=== PATIENT | male | born 2000 | race Caucasian/White ===

== ENCOUNTER 2023-08-06 12:06 | Outpatient (AMB) | payer OTHER, SELFPAY ==
--- NOTE | 2023-08-06 12:27 | AM.OFFWIN_ITS ---
Intake Vital Signs 08/06/23 12:48 Height 5 ft 11 in Weight 265 lb 8 oz BMI 37.0 BP 130/78 Blood Pressure Location Lt brachial Position Sitting Pulse 82 Pulse Source Pulse Oximeter Temp 98.1 F Temp Source Oral Pulse Oximetry (%) 98 Oxygen Delivery Method Room Air Intake Visit Reasons: EP severe stomach pain [phone] Intake Note: pt is here for c.o severe stomach pain since this morning Patient Tobacco Use Status: Never used Tobacco Allergies No Known Allergies Allergy (Verified 08/06/23 12:49) Do you need a note to return to daycare/school/sports/work: Yes HPI HPI Comments History of Present Illness Details [facility] for right sided mid-abdominal pain since this morning. Pain started after patient woke up this morning. 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 He made himself throw up and states the pain improved Took pepto at home Had normal BM yesterday, today he reports half watery and half solid. Endorses bloating Denies fever, chest pain, shortness of breath, blood in urine/stool/emesis, syncope, weakness Endorses fatigue and feeling run down which he attributes to working outside in the cold Patient reports pain is intermittent, has improved since his arrival at the [facility]. [facility] Family History Father Substance use disorder Social History Housing: House Patient Tobacco Use Status: Never used Tobacco e-Cigarette/Vaping Use: Never Used Second Hand Smoke Exposure: Yes service: No Current occupational status: employed Current occupation: [employer] Current occupational exposures/hazards: Yes Cognitive needs: No Hearing needs: No Vision needs: No Review of Systems Const All systems reviewed & are unremarkable except as noted in HPI and below Physical Exam Vital Signs: Last Vital Signs Temp 98.1 F 08/06/23 12:48 Pulse 82 08/06/23 12:48 BP 130/78 08/06/23 12:48 Pulse Ox 98 08/06/23 12:48 Oxygen Delivery Method Room Air 08/06/23 12:48 BMI result Body Mass Index 37.0 General: awake, alert, oriented. Answers questions appropriately. Patient was sleeping with head resting on hands. Appears comfortable in no acute distress Skin: warm, dry, intact HEENT: Normocephalic. Hearing intact. oral mucosa moist Cardiac: External chest normal in appearance. Respiratory: No cough, audible wheezing or stridor. Abdomen: without gross distension. no guarding. minimally tender just right of umbilicus otherwise nontender to palpation. negative McBurney. BS active X 4 quads MS: No obvious swelling or deformities. Neurological: Oriented to person, place, time and situation. Thought process intact. No gait abnormalities appreciated. Psychiatric: Appropriate mood and affect. Good judgment and insight. Assessment & Plan Assessment & Plan (1) Abdominal pain: Code(s): R10.9 - Unspecified abdominal pain Plan Patient presented to the walk in with complaints of abdominal pain Pain had improved after arrival at the [facility]. Upon entering the room for evaluation the patient was resting comfortably with head on hands, reported he was sleeping . Abdomen minimally tender to palpation just right of umbilicus otherwise nontender. neg guarding. No acute concerns at this time. Simethicone 180mg po BID as needed Patient encouraged rest and clear liquid diet, advance as tolerated. Avoid dairy, spicy, fatty foods for today. Push fluids as tolerated Seek emergent treatment in ER for severe abd pain, intractable vomiting, blood in stool/emesis or any concerning symptoms. Follow up with pcp or at walk in as needed. Work note provided. Medications: New simethicone 180 mg PO BID PRN 20 caps 0RF abdominal distention Coding Level of Care Code Est Pt Level 4 (79735) Diagnoses Abdominal pain R10.9
[2023-08-06 12:48] VITALS: BP 130/78; PULSE 82; TEMP 36.7; O2SAT 98; BMI 37.0
== END 2023-08-06 14:40 | disposition home or self-care (01) ==
PROVIDERS: PCP Nurse Practitioner Family; Visit Provider Registered Nurse Emergency
DX: R10.9 Unspecified abdominal pain (principal)
CPT/HCPCS: 99213

== ENCOUNTER 2023-09-05 08:27 | Outpatient (AMB) | payer OTHER, SELFPAY ==
[2023-09-05 08:41] VITALS: BP 128/78; PULSE 78; TEMP 36.4; O2SAT 97; BMI 36.3
--- NOTE | 2023-09-05 08:41 | AM.OFFWIN_ITS ---
Intake Vital Signs 09/05/23 08:41 Height 5 ft 11 in Weight 260 lb BMI 36.3 BP 128/78 Blood Pressure Location Lt brachial Position Sitting Pulse 78 Pulse Source Pulse Oximeter Temp 97.5 F Temp Source Temporal Artery Scan Pulse Oximetry (%) 97 Oxygen Delivery Method Room Air Intake Visit Reasons: EP penis skin irritation Intake Note: pt is here today for penis skin irritation started 2 weeks ago Patient Tobacco Use Status: Never used Tobacco Allergies No Known Allergies Allergy (Verified 09/05/23 08:42) Do you need a note to return to daycare/school/sports/work: No HPI HPI Comments History of Present Illness Details Patient is a 23yo M who presents to office with penile irritation Ongoing for 1 week Never had before No itch or pain, 0/10 No drainage or injury No dysuria, frequency hematuria No abdominal pain He has not tried any lotions on areal warm; water and soap Pt denies concern about STD No new irritating contacts aside from the use of a sex toy he states at home. [facility] Family History Father Substance use disorder Social History Housing: House Patient Tobacco Use Status: Never used Tobacco e-Cigarette/Vaping Use: Never Used Second Hand Smoke Exposure: Yes service: No Current occupational status: employed Current occupation: [employer] Current occupational exposures/hazards: Yes Cognitive needs: No Hearing needs: No Vision needs: No Review of Systems Const Denies chills and Denies fever(s) Card Denies chest pain and Denies dyspnea Resp Denies cough and Denies dyspnea GI Denies abdominal pain Denies difficulty urinating, Reports genital lesions, Denies genital pain, Denies dysuria, Denies testicular pain, Denies urinary frequency, Denies urinary hesitancy, Denies urinary incontinence and Denies urinary urgency Musc Denies back pain Skin/Breast Reports erythema and Reports rash Physical Exam Vital Signs: Last Vital Signs Temp 97.5 F 09/05/23 08:41 Pulse 78 09/05/23 08:41 BP 128/78 09/05/23 08:41 Pulse Ox 97 09/05/23 08:41 Oxygen Delivery Method Room Air 09/05/23 08:41 BMI result Body Mass Index 36.3 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 Speaking full sentences. Skin: Warm dry throughout Respiratory: No respiratory distress Cardiac: RRR. MSK: Full ROM extremities. : Circumsized penis has 3 well demarcated slightly raised erythematous circular/oval lesions. 1 located on dorsal aspect of shaft approx 0.5cm x 0.5xm. Smaller circular lesion noted to dorsal aspect of head of penis. One larger lesion located to undersurface of penile shaft approx 1cm x 0.5cm. Non-tender. No penile discharge. Neurology: A/O. No aphasia or facial droop. Gait without abnormality Psych: Good mood and affect Assessment & Plan Assessment & Plan (1) Balanitis: Code(s): N48.1 - Balanitis Plan: + fungal balanitis on exam Discussed avoid trauma such as masterbation of sex toys x 1 week Use cream as prescribed Make sure sex toys at home are cleaned well prior to use Patient gave verbal understanding and had no additional questions or concerns at time of discharge All questions answered Medications: New clotrimazole 1% 1 appl topical BID 1 week 30 grams 0RF Coding Level of Care Code Est Pt Level 3 (18728) Diagnoses Balanitis N48.1
== END 2023-09-05 09:22 | disposition home or self-care (01) ==
PROVIDERS: PCP Nurse Practitioner Family; Visit Provider Physician Assistant
DX: N48.1 Balanitis (principal)
CPT/HCPCS: 99213

== ENCOUNTER 2023-09-07 08:01 | Outpatient (AMB) | payer OTHER, SELFPAY ==
[2023-09-07 08:10] VITALS: BP 122/72; PULSE 74; TEMP 36.6; O2SAT 98; BMI 36.3
--- NOTE | 2023-09-07 08:10 | MHC.OFFWIV ---
Intake Vital Signs 09/07/23 08:10 Height 5 ft 11 in Weight 260 lb BMI 36.3 BP 122/72 Blood Pressure Location Lt brachial Position Sitting Pulse 74 Pulse Source Pulse Oximeter Temp 97.8 F Temp Source Oral Pulse Oximetry (%) 98 Oxygen Delivery Method Room Air Intake Visit Reasons: EP Rash Intake Note: pt is here for c.o rash on penial, was in office 2 days ago and was given a cream and states it has gotten itchy and feels like rash has gotten worse. Patient Tobacco Use Status: Never used Tobacco Allergies No Known Allergies Allergy (Verified 09/07/23 08:11) Do you need a note to return to daycare/school/sports/work: Yes HPI HPI Comments History of Present Illness Details 23 male patient who presents to walk in clinic with c/o Penile rash that started 2 weeks ago. He was seen and evaluated at Walk in clinic 2 days ago and given Diagnosed with Penile Balanitis and given Clotrimazole cream. He presents today with c/o worsening symptoms. [facility] Family History Father Substance use disorder Social History Housing: House Patient Tobacco Use Status: Never used Tobacco e-Cigarette/Vaping Use: Never Used Second Hand Smoke Exposure: Yes service: No Current occupational status: employed Current occupation: [employer] Current occupational exposures/hazards: Yes Cognitive needs: No Hearing needs: No Vision needs: No Review of Systems Const All systems reviewed & are unremarkable except as noted in HPI and below Physical Exam Vital Signs: Last Vital Signs Temp 97.8 F 09/07/23 08:10 Pulse 74 09/07/23 08:10 BP 122/72 09/07/23 08:10 Pulse Ox 98 09/07/23 08:10 Oxygen Delivery Method Room Air 09/07/23 08:10 BMI result Body Mass Index 36.3 Const General: comfortable Orientation/consciousness: patient oriented x3 Male General Exam: Yes Genital lesions present (Small red lesions penile head, scrotum skin - signs of improvement) Penis: circumcised and Genital lesions present (Small red lesions penile head, scrotum skin - signs of improvement) Meatus: no meatla discharge Neuro General: patient oriented x3 Psych Speech and movement: Clear speech present Affect: Anxious affect present Attitude: cooperative Assessment & Plan Assessment & Plan (1) Balanitis: Code(s): N48.1 - Balanitis Plan: - Continue with the cream prescribed - Assured Pt that rash is getting better and cream working - Advised to give medicine sometime to work (2-4 weeks). - No more sex toys for few weeks - Clean Toys with warm and soap water. Coding Level of Care Code Est Pt Level 3 (50149) Diagnoses Balanitis N48.1 Time Spent (min) 15
== END 2023-09-07 08:49 | disposition home or self-care (01) ==
PROVIDERS: PCP Nurse Practitioner Family; Visit Provider Nurse Practitioner Family
DX: N48.1 Balanitis (principal)
CPT/HCPCS: 99213

== ENCOUNTER 2023-09-17 08:43 | Outpatient (AMB) | payer OTHER, SELFPAY ==
--- NOTE | 2023-09-17 09:07 | AM.OFFWIN_ITS ---
Intake Vital Signs 09/17/23 09:08 Weight 261 lb BP 116/80 Blood Pressure Location Lt brachial Position Sitting Pulse 78 Pulse Source Pulse Oximeter Pulse Oximetry (%) 98 Oxygen Delivery Method Room Air Intake Visit Reasons: EST/rash ongoing/spreading (lobby) Intake Note: patient here for rash on penis that has been present for a few weeks and has recently noticed tingling on the scrotum which is what brought him in today. Patient Tobacco Use Status: Never used Tobacco Allergies No Known Allergies Allergy (Verified 09/17/23 09:09) Do you need a note to return to daycare/school/sports/work: Yes HPI HPI Comments History of Present Illness Details 23-year-old male comes in today for foll ow-up visit of his balanitis. He has had 1 increasing area of irritation and rash from his last visit and once approval to use the clotrimazole 1% that was given to him by his PCP. [facility] Family History Father Substance use disorder Social History Housing: House Patient Tobacco Use Status: Never used Tobacco e-Cigarette/Vaping Use: Never Used Second Hand Smoke Exposure: Yes service: No Current occupational status: employed Current occupation: [employer] Current occupational exposures/hazards: Yes Cognitive needs: No Hearing needs: No Vision needs: No Review of Systems Const All systems reviewed & are unremarkable except as noted in HPI and below Physical Exam Vital Signs: Last Vital Signs Pulse 78 09/17/23 09:08 BP 116/80 09/17/23 09:08 Pulse Ox 98 09/17/23 09:08 Oxygen Delivery Method Room Air 09/17/23 09:08 Penis: other (Two areas of erythema without vesicle or lesion) Assessment & Plan Assessment & Plan (1) Balanitis: Code(s): N48.1 - Balanitis Plan: The patient will continue the clotrimazole as prescribed by his PCP for the next 10 days. Follow-up as needed Plan See plan Coding Level of Care Code Est Pt Level 3 (14870) Diagnoses Balanitis N48.1 Time Spent (min) 20
[2023-09-17 09:08] VITALS: BP 116/80; PULSE 78; O2SAT 98
== END 2023-09-17 10:01 | disposition home or self-care (01) ==
PROVIDERS: PCP Nurse Practitioner Family; Visit Provider Physician Assistant Medical
DX: N48.1 Balanitis (principal)
CPT/HCPCS: 99213

== ENCOUNTER 2023-09-29 09:17 | Outpatient (AMB) | payer OTHER, SELFPAY ==
[2023-09-29 09:29] VITALS: BP 118/74; PULSE 89; TEMP 36.6; O2SAT 98; BMI 36.4
--- NOTE | 2023-09-29 09:29 | AM.OFFWIN_ITS ---
Intake Vital Signs 09/29/23 09:29 Height 5 ft 11 in Weight 261 lb BMI 36.4 BP 118/74 Blood Pressure Location Lt brachial Position Sitting Pulse 89 Pulse Source Pulse Oximeter Temp 97.9 F Temp Source Oral Pulse Oximetry (%) 98 Oxygen Delivery Method Room Air Intake Visit Reasons: EP Infection flare up Intake Note: pt is here for c.o fungal infection in genital area, was treated with cream but not getting better Patient Tobacco Use Status: Never used Tobacco Allergies No Known Allergies Allergy (Verified 09/29/23 09:30) Do you need a note to return to daycare/school/sports/work: No HPI HPI Comments History of Present Illness Details 23-year-old male presents for re-evaluat ion. Patient is being treated for balanitis using clotrimazole cream states that the spots are getting better med little bit of a flare up and wanted a re-evaluation nice keep using the cr eam. PFSH Family History Father Substance use disorder Social History Housing: House Patient Tobacco Use Status: Never used Tobacco e-Cigarette/Vaping Use: Never Used Second Hand Smoke Exposure: Yes service: No Current occupational status: employed Current occupation: [employer] Current occupational exposures/hazards: Yes Cognitive needs: No Hearing needs: No Vision needs: No Physical Exam Vital Signs: Last Vital Signs Temp 97.9 F 09/29/23 09:29 Pulse 89 09/29/23 09:29 BP 118/74 09/29/23 09:29 Pulse Ox 98 09/29/23 09:29 Oxygen Delivery Method Room Air 09/29/23 09:29 BMI result Body Mass Index 36.4 Const General: cooperative, healthy appearing, no acute distress and alert Orientation/consciousness: patient oriented x3 Limitations: no limitations HEENT Head: Yes normal to inspection Ears: hearing grossly normal bilaterally General nose exam: Normal external nose present Resp Effort & Inspection: normal respiratory effort and able to speak in complete sentences Cardio Rate: regular rate Other: Area of erythema no vesicles at the 11 o'clock position on the tip of the penis proximally calf insulin diameter area of erythema on the shaft of the penis no side mild scaling no lesions. Skin General skin exam: no rashes or lesions noted Neuro General: patient oriented x3 Extrem General: Yes normal to inspection Assessment & Plan Assessment & Plan (1) Balanitis: Code(s): N48.1 - Balanitis Plan: VSS. Patient exam ears seem to be healing appropriately recommend continued treatment as it can be used for up to 4 weeks. If at this point patient still having symptoms discussed possible urology referral. Coding Level of Care Code Est Pt Level 2 (95322) Diagnoses Balanitis N48.1
== END 2023-09-29 10:17 | disposition home or self-care (01) ==
PROVIDERS: PCP Nurse Practitioner Family; Visit Provider Physician Assistant
DX: N48.1 Balanitis (principal)
CPT/HCPCS: 99051; 99212

== ENCOUNTER 2023-10-08 09:58 | Outpatient (AMB) | payer OTHER, SELFPAY ==
--- NOTE | 2023-10-08 10:09 | MHC.PC.OV ---
Vital Signs 10/08/23 10:12 Height 5 ft 11 in Weight 262 lb BMI 36.5 BP 122/74 Blood Pressure Location Lt brachial Position Sitting Pulse 78 Pulse Source Pulse Oximeter Pulse Oximetry (%) 98 Oxygen Delivery Method Room Air Intake Visit Reasons: walk in follow up Intake Note: pt is here for lesions on genitals, was seen in walk n twice and was given cream for it and states its not getting better Manager Learning Required: No Accompanied by: Self / Same As Patient Allergies No Known Allergies Allergy (Verified 10/08/23 12:20) Medication List - Last Reconciled 10/08/23 by NEVA Nagy-GILBERTO clotrimazole 1% 1 appl topical BID 4 weeks Tobacco use date assessed: 10/08/23 Dental Screening Dental Screen Date: 10/08/23 Did you have a dental visit in the last 12 months?: Yes Did you have a dental problem in the last 6 months where you did not have access to dental care?: No Was dental information given to patient?: Patient has dentist HPI walk in follow up HPI Details Pt has been seen in the walk-in multiple times for balanitis. He was given clotrimazole cream. Pt reports that this is improving. He reports less redness. Denies any penile discharge. Pt is uncircumcised. Recommended hydrocortisone cream as well 12 hours after clotrimazole. Will order labs to assess for diabetes. Denies fever, chills, and dizziness. [facility] Surgical History No pertinent past surgical history Family History Father Substance use disorder Social History Housing: House Patient Tobacco Use Status: Never used Tobacco e-Cigarette/Vaping Use: Never Used Second Hand Smoke Exposure: Yes service: No Current occupational status: employed Current occupation: [id number] Current occupational exposures/hazards: Yes Cognitive needs: No Hearing needs: No Vision needs: No Questionnaire PHQ-9 Over the last 2 weeks, how often have you been bothered by any of the following problems? 1. Little interest or pleasure in doing things: not at all 2. Feeling down, depressed, or hopeless: more than half the days 3. Trouble falling or staying asleep, or sleeping too much: not at all 4. Feeling tired or having little energy: several days 5. Poor appetite or overeating: not at all 6. Feeling bad about yourself - or that you are a failure or have let yourself or your family down: more than half the days 7. Trouble concentrating on things, such as reading the newspaper or watching television: not at all 8. Moving or speaking so slowly that other people could have noticed. Or the opposite - being so fidgety or restless that you have been moving around a lot more than usual: not at all 9. Thoughts that you would be better off or of hurting yourself in some way: not at all Total score: 5 Depression Screening Interpretation: Negative Depression Screening Done: Yes 73869 - PHQ-9 Billing: Yes Source: Developed by Drs. Sami Simon, Harmony Puga, Yoav Watkins and colleagues, with an educational shirley from [employer]. Thrive Questionnaire Date Thrive assessed: 10/08/23 I am a: Patient What is your living situation today?: I have a steady place to live Within the past 12 months, did the food you bought not last and you didn't have the money to get more?: Never true Within the past 12 months, did you worry whether your food would run out before you got money to buy more?: Never true Do you have trouble paying for medicines?: No Do you have trouble getting transportation to medical appointments?: No Do you have trouble paying your heating and electricity bill?: No Do you have trouble taking care of your child, family member or friend?: No Do you have trouble with day-to-day activities such as bathing, preparing meals, shopping, managing finances, etc.?: No Are you currently unemployed and looking for a job?: No Are you interested in more education?: No Please select the resources that you would like help with: None Currently or been in a relationship where the following occur: no concerns reported THRIVE Score: 0 AUDIT C Alcohol Use Questionnaire (AUDIT-C) 1. How often do you have a drink containing alcohol?: Monthly or less 2. How many drinks containing alcohol do you have on a typical day when you are drinking?: 5 or 6 3. How often do you have six or more drinks on one occasion?: Less than monthly Total Score: 4 Score Reviewed/Action Taken: Yes GISELA-7 AMB Questionnaire GISELA-7 Date GISELA - 7 assessed: 10/08/23 Feeling nervous, anxious, or on edge: 1 = Several days Not being able to stop or control worryin = More than half the days Worrying too much about different things: 1 = Several days Trouble relaxin = Several days Being so restless that it is hard to sit still: 1 = Several days Becoming easily annoyed or irritable: 1 = Several days Feeling afraid as if something awful might happen: 1 = Several days Total GISELA-7 score (0-4 normal; 5-9 mild; 10-14 moderate; 15-21 severe): 8 Source: Developed by Drs. Sami Simon, Harmony Puga, Yoav Watkins and colleagues, with an educational shirley from [employer]. GISELA-7 Assessment Billing GISELA-7 Assessment Tool: GISELA-7 Assessment 75759 Review of Systems Const Reports as per HPI Physical exam (Primary Care) Vital Signs: Last Vital Signs Pulse 78 10/08/23 10:12 BP 122/74 10/08/23 10:12 Pulse Ox 98 10/08/23 10:12 Oxygen Delivery Method Room Air 10/08/23 10:12 BMI result Body Mass Index 36.5 Tobacco/Smoking Status: Tobacco use Status Tobacco use date assessed 10/08/23 10/08/23 10:17 Patient Tobacco Use Status Never used Tobacco 10/08/23 10:11 e-Cigarette/Vaping Use Never Used 10/08/23 10:11 PHQ-9: PHQ-9 Score PHQ-9: Total score 5 10/08/23 10:53 Depression Screening Interpretation: Negative Thrive Assessment: Date of Thrive Assessment Date Thrive assessed 10/08/23 10/08/23 10:17 Currently or been in a relationship where the following occur: no concerns reported Const General: cooperative Nutritional Appearance: obese Orientation/consciousness: patient oriented x3 Resp Effort & Inspection: normal respiratory effort Auscultation: clear to auscultation bilaterally Cardio Rate: regular rate Rhythm: regular rhythm Heart sounds: S1 normal heart sound present and S2 normal heart sound present Other: glans penis slightly erythematous, no active discharge Penis: uncircumcised Neuro General: patient oriented x3 Psych Appearance: grossly normal Mental Status: mental status grossly normal Speech and movement: Normal speech and movement present Affect: normal affect Attitude: cooperative Thought process: Normal thought process present Thought content: Normal thought content present Insight: Good insight present (Psych) Judgement: Good judgement present (Psych) Assessment and Plan Assessment & Plan (1) Balanitis: Code(s): N48.1 - Balanitis Plan: Continue clotrimazole, labs ordered, start hydrocortisone cream Plan The patient agreed to the use of a medical assistant cardiology for this encounter. Scribed for CINTHIA Bland by Karolina Oh medical assistant cardiology, on 10/08/2023 at 10:45 EST. Orders: Orders UA CC w/rflx Micro + Cult Today N48.1 - Balanitis Lipid Panel Today N48.1 - Balanitis Hemoglobin A1c Today N48.1 - Balanitis Complete Blood Count Auto Diff Today N48.1 - Balanitis Comprehensive [place]. Panel Fast Today N48.1 - Balanitis TSH reflex Free T4 Today N48.1 - Balanitis Coding Level of Care Code Est Pt Level 3 (22016) Diagnoses Balanitis N48.1 Additional Codes GISELA-7 Assessment Billing - GISELA-7 Assessment Tool: GISELA-7 Assessment 50124 ([id number])
[2023-10-08 10:12] VITALS: BP 122/74; PULSE 78; O2SAT 98; BMI 36.5
== END 2023-10-08 14:43 | disposition home or self-care (01) ==
PROVIDERS: PCP Nurse Practitioner Family; Visit Provider Nurse Practitioner Family
DX: N48.1 Balanitis (principal)
CPT/HCPCS: 99213

== ENCOUNTER 2023-10-10 06:57 | Outpatient (REF) | payer OTHER, SELFPAY ==
[2023-10-10 10:17] LABS: MANUAL DIFF FLAG NO
[2023-10-10 10:22] LABS: Appearance Urine Clear; Color Urine Yellow; Glucose Urine UA Negative (Negative); Leukocyte Esterase Urine Negative (Negative); Nitrite Urine Negative (Negative); PH 5.5 (5.0-9.0); Specific Gravity - Urine 1.025 (1.005-1.025); Urine Blood Negative (Negative); Urine Ketones Trace mg/dL (Negative); Urine Protein Negative (Neg-Trace)
[2023-10-10 10:25] LABS: Basophils Percent Auto 0.4 % (0-2); Eosinophils Absolute Auto 0.1 X10*3/uL (0.0-0.4); Eosinophils Percent Auto 0.7 % (0-4); Hemoglobin 16.8 g/dl (14.0-18.0); Imm Gran Abs Auto 0.02 X10*3/uL (0.00-0.03); Imm Gran Pct Auto 0.3 % (0.0-0.4); Lymphocytes Absolute Auto 1.7 X10*3/uL (1.2-4.9); Lymphocytes Percent Auto 24.7 % (20-40); Mean Corpuscular HGB Conc 32.9 g/dl (31.0-36.0); Mean Corpuscular Hemoglobin 28.8 pg (27.0-33.0); Mean Corpuscular Volume 87.3 fL (80.0-98.0); Monocytes Absolute Auto 0.6 X10*3/uL (0.1-1.2); Monocytes Percent Auto 8.1 % (2-11); Neutrophils Absolute Auto 4.4 x10*3/uL (2.0-8.3); Neutrophils Percent Auto 65.8 % (45-73); Platelet Count 194 X10*3/uL (160-400); Red Blood Count 5.84 X10*6/uL (4.60-5.80); Red Cell Distribution Width 12.9 % (11.0-16.0); White Blood Count 6.8 X10*3/uL (4.8-10.8)
[2023-10-10 11:01] LABS: Estimated Average Glucose 97 mg/dL
[2023-10-10 11:22] LABS: Alanine Aminotransferase 24 U/L (0-40); Albumin Level 4.3 g/dL (3.5-5.0); Alkaline Phosphatase 51 U/L (39-117); Anion Gap 11 (12-20); Aspartate Amino Transferase 19 U/L (5-37); Bilirubin Total 0.9 mg/dL (0.0-1.0); Blood Urea Nitrogen 16 mg/dL (9-16); Calcium 9.5 mg/dL (8.4-10.2); Carbon Dioxide 26 mmol/L (22-29); Chloride 107 mmol/L (96-108); Cholesterol 168 mg/dL (<200); Estimated Glomerular Filt Rate > 60; Glucose Fasting 86 mg/dL (60-99); HDL Cholesterol 44 mg/dL (>40); LDL Cholesterol Calculated 107 mg/dL (<100); Sodium 140 mmol/L (135-145); Total Protein 7.6 g/dL (6.5-8.0); Triglycerides 88 mg/dL (<150)
[2023-10-10 11:42] LABS: TSH reflex Free T4 1.56 uIU/mL (0.32-4.0)
== END 2023-10-10 06:58 | disposition home or self-care (01) ==
LOC: HO.HMGCLDS 06:57
PROVIDERS: PCP Nurse Practitioner Family; Visit Provider Nurse Practitioner Family
DX: Z13.6 Encounter for screening for cardiovascular disorders (principal); N48.1 Balanitis
CPT/HCPCS: 36415; 80053; 80061; 81003; 83036; 84443; 85025

== ENCOUNTER 2023-12-03 09:48 | Outpatient (AMB) | payer OTHER, SELFPAY ==
--- NOTE | 2023-12-03 09:58 | AM.OFFWIN_ITS ---
Intake Vital Signs 12/03/23 09:59 Height 5 ft 11 in Weight 259 lb 2 oz BMI 36.1 BP 134/80 Blood Pressure Location Rt brachial Position Sitting Pulse 73 Pulse Source Pulse Oximeter Temp 98.2 F Temp Source Oral Pulse Oximetry (%) 98 Oxygen Delivery Method Room Air Intake Visit Reasons: Est/rash on left leg(lobby) Intake Note: Pt is here today for rash on Lt leg, pt states noticed few days ago Patient Tobacco Use Status: Never used Tobacco Allergies No Known Allergies Allergy (Verified 12/03/23 10:07) Do you need a note to return to daycare/school/sports/work: No HPI HPI Comments History of Present Illness Details Patient presents to the walk-in today for sick visit Complaining of rash to the inner left thigh for last 3 days Denies itching or pain for the area Has been using hydrocortisone cream for last 2 days PFSH Surgical History No pertinent past surgical history Family History Father Substance use disorder Social History Housing: House Patient Tobacco Use Status: Never used Tobacco e-Cigarette/Vaping Use: Never Used Second Hand Smoke Exposure: Yes service: No Current occupational status: employed Current occupation: [employer] Current occupational exposures/hazards: Yes Cognitive needs: No Hearing needs: No Vision needs: No Review of Systems Const All systems reviewed & are unremarkable except as noted in HPI and below Physical Exam Vital Signs: Last Vital Signs Temp 98.2 F 12/03/23 09:59 Pulse 73 12/03/23 09:59 BP 134/80 12/03/23 09:59 Pulse Ox 98 12/03/23 09:59 Oxygen Delivery Method Room Air 12/03/23 09:59 BMI result Body Mass Index 36.1 General: awake, alert, oriented. Answers questions appropriately. Fully engaged in examination. Skin: warm, dry, intact. several small areas of diffuse erythematous, dry patches left inner upper thigh without excoriation, weeping or drainage. HEENT: Normocephalic. Hearing intact. Cardiac: External chest normal in appearance. Respiratory: No cough, audible wheezing or stridor. Abdomen: without gross distension. MS: No obvious swelling or deformities. Neurological: Oriented to person, place, time and situation. Thought process intact. No gait abnormalities appreciated. Psychiatric: Appropriate mood and affect. Good judgment and insight. Assessment & Plan Assessment & Plan (1) Dermatitis: Code(s): L30.9 - Dermatitis, unspecified Plan Continue with hydrocortisone as previously prescribed Keep area clean and dry, open to air when home Follow up with dermatology if no improvement Follow up with PCP or return here for any new or worsening symptoms Coding Level of Care Code Est Pt Level 3 (39614) Diagnoses Dermatitis L30.9
[2023-12-03 09:59] VITALS: BP 134/80; PULSE 73; TEMP 36.8; O2SAT 98; BMI 36.1
== END 2023-12-03 10:43 | disposition home or self-care (01) ==
PROVIDERS: PCP Nurse Practitioner Family; Visit Provider Registered Nurse Emergency
DX: L30.9 Dermatitis, unspecified (principal)
CPT/HCPCS: 99213

== ENCOUNTER 2023-12-26 10:13 | Outpatient (AMB) | payer OTHER, SELFPAY ==
[2023-12-26 10:17] VITALS: BP 122/80; PULSE 72; O2SAT 97; BMI 36.5
--- NOTE | 2023-12-26 10:17 | A.OFFPC_ITS ---
Vital Signs 12/26/23 10:17 Height 5 ft 11 in Weight 261 lb 8 oz BMI 36.5 BP 122/80 Blood Pressure Location Rt brachial Position Sitting Pulse 72 Pulse Source Pulse Oximeter Pulse Oximetry (%) 97 Oxygen Delivery Method Room Air Intake Visit Reasons: fungal infection Intake Note: pt is here for follow up on fungal infection in [facility] National Sales Manager Required: No Accompanied by: Self / Same As Patient Allergies No Known Allergies Allergy (Verified 12/26/23 11:02) Medication List - Last Reconciled 12/26/23 by CINTHIA Nagy fluconazole 200 mg PO .Q week 4 weeks ketoconazole 2% 1 appl topical DAILY Tobacco use date assessed: 10/08/23 Dental Screening Dental Screen Date: 10/08/23 HPI fungal infection HPI Details Pt reports an ongoing fungal rash to his bilat inguinal region running to his thighs and lower abdomen. He has tried multiple steroid and anti-fungal creams for this. Will send oral medication. Denies fever, chills, and dizziness. Explained that he should try to keep his skin dry. [facility] Surgical History No pertinent past surgical history Family History Father Substance use disorder Social History Housing: House Patient Tobacco Use Status: Never used Tobacco e-Cigarette/Vaping Use: Never Used Second Hand Smoke Exposure: Yes service: No Current occupational status: employed Current occupation: [employer] Current occupational exposures/hazards: Yes Cognitive needs: No Hearing needs: No Vision needs: No Questionnaire Thrive Questionnaire Date Thrive assessed: 10/08/23 I am a: Patient What is your living situation today?: I have a steady place to live Within the past 12 months, did the food you bought not last and you didn't have the money to get more?: Never true Within the past 12 months, did you worry whether your food would run out before you got money to buy more?: Never true THRIVE Score: 0 AUDIT C Alcohol Use Questionnaire (AUDIT-C) 1. How often do you have a drink containing alcohol?: 2-4 times a month 2. How many drinks containing alcohol do you have on a typical day when you are drinking?: 3 or 4 3. How often do you have six or more drinks on one occasion?: Less than monthly Total Score: 4 GISELA-7 AMB Questionnaire GISELA-7 Date GISELA - 7 assessed: 10/08/23 Feeling nervous, anxious, or on edge: 1 = Several days Not being able to stop or control worryin = Several days Worrying too much about different things: 2 = More than half the days Trouble relaxin = Several days Being so restless that it is hard to sit still: 0 = Not at all Becoming easily annoyed or irritable: 1 = Several days Feeling afraid as if something awful might happen: 2 = More than half the days Total GISELA-7 score (0-4 normal; 5-9 mild; 10-14 moderate; 15-21 severe): 8 Source: Developed by Drs. Sami Simon, Harmony Puga, Yoav Watkins and colleagues, with an educational shirley from [employer]. Review of Systems Const Reports as per HPI Physical exam (Primary Care) Vital Signs: Last Vital Signs Pulse 72 12/26/23 10:17 BP 122/80 12/26/23 10:17 Pulse Ox 97 12/26/23 10:17 Oxygen Delivery Method Room Air 12/26/23 10:17 BMI result Body Mass Index 36.5 Tobacco/Smoking Status: Tobacco use Status Tobacco use date assessed 10/08/23 12/26/23 10:18 Patient Tobacco Use Status Never used Tobacco 12/26/23 10:18 e-Cigarette/Vaping Use Never Used 12/26/23 10:18 Thrive Assessment: Date of Thrive Assessment Date Thrive assessed 10/08/23 12/26/23 10:18 Const General: cooperative Nutritional Appearance: obese Orientation/consciousness: patient oriented x3 Skin Other: extensive macular erythema from bilat inguinal region down medial and anterior thighs and to lower abdomen Neuro General: patient oriented x3 Psych Appearance: grossly normal Mental Status: mental status grossly normal Speech and movement: Normal speech and movement present Affect: normal affect Attitude: cooperative Thought process: Normal thought process present Thought content: Normal thought content present Insight: Good insight present (Psych) Judgement: Good judgement present (Psych) Assessment and Plan Assessment & Plan (1) Tinea cruris: Code(s): B35.6 - Tinea cruris Plan: fluconazole sent. Pt knows to follow the instructions on the bottle. Also informed him to stop drinking any alcohol while on this medication. Pt will in form me on how he is doing in approx 2 weeks Plan The patient agreed to the use of a medical office administrator for this encounter. Scribed for NEVA Bland-GILBERTO by Karolina Oh medical office administrator, on 12/26/2023 at 10:30 EST. Medications: New fluconazole 200 mg PO .Q week 4 tabs 0RF 4 weeks Coding Level of Care Code Est Pt Level 3 (08592) Diagnoses Tinea cruris B35.6
== END 2023-12-26 13:48 | disposition home or self-care (01) ==
PROVIDERS: PCP Nurse Practitioner Family; Visit Provider Nurse Practitioner Family
DX: B35.6 Tinea cruris (principal)
CPT/HCPCS: 99213

== ENCOUNTER 2023-12-28 09:19 | Outpatient (AMB) | payer OTHER, SELFPAY ==
--- NOTE | 2023-12-28 09:21 | A.OFFVIS_ITS ---
Intake Visit Reasons: balanitis Intake Note: NEW Patient presents today to established treatment for Balanitis: Meds- None Allergies to Antibiotic- No Known Allergies Blood Thinner- None Ride Attendant Required: No Accompanied by: Self / Same As Patient Allergies No Known Allergies Allergy (Verified 12/28/23 09:22) HPI Comments Details: Jose is a 23-year-old male who is here with complaints of recurrent balanitis. The patient is circumcised and complains of irritation around the glans of the penis. The patient has been treated with an antifungal cream by PCP and states that the area has healed. More recently he has noted pruritus around the scrotum and a rash that has extended to the lower abdomen and down his inner t highs. He complains that it is very irritating and he has been scratching. On evaluation there are red papular changes that may be type of reactive dermatitis, etiology is unclear. He is currently on fluconazole prescribed by PCP. He states that he plans to see a butadiene converter helper if the rash does not improve. Examination of the penis the glans is unremarkable. I have recommended as well that if the rash persists that he does need to see a butadiene converter helper. He will call for recurrent irritation/inflammation of the penis. 45 minutes spent in review of records pertaining to this visit and including [id number] discussion with the patient and documentation of this visit. [facility] Surgical History No pertinent past surgical history Family History Father Substance use disorder Social History Housing: House Patient Tobacco Use Status: Never used Tobacco e-Cigarette/Vaping Use: Never Used Second Hand Smoke Exposure: Yes service: No Current occupational status: employed Current occupation: [employer] Current occupational exposures/hazards: Yes Cognitive needs: No Hearing needs: No Vision needs: No Review of Systems Const All systems reviewed & are unremarkable except as noted in HPI and below Reports no additional complaints Eyes Reports no additional complaints ENT Reports no additional complaints Card Reports no additional complaints Resp Reports no additional complaints GI Reports no additional complaints Reports as per HPI Musc Reports no additional complaints Skin/Breast Reports system reviewed and no additional complaints, except as documented Neuro Reports no additional complaints Psych Reports no additional complaints Endo Reports no additional complaints Linus/Lymph Reports no additional complaints Aller/Immun Reports no additional complaints Physical Exam Const General: healthy appearing, no acute distress and well developed Orientation/consciousness: patient oriented x3 HEENT Head: Yes normocephalic and Yes atraumatic Eyes Conjunctivae: conjunctivae normal Neck Neck: Yes normal visual inspection Chest Chest palpation & inspection: normal inspection of the chest Resp Effort & Inspection: normal respiratory effort Cardio Rate: regular rate GI Inspection: Yes normal to inspection Palpation (GI): Soft to palpation Other: Penis and scrotum no significant erythematous changes noted. Penis: normal penis Skin Rashes: rashes noted (Red papular) Inner thigh bilaterally in lower abdomen Neuro General: patient oriented x3 Extrem General: No pedal edema Psych Appearance: grossly normal Affect: normal affect Results AMB Urinalysis, Automated UA Leukoctes 0 Freddy/uL Last Edit by KAYLEE Felipe on 12/28/23 09:37 UA Nitrite Negative Last Edit by KAYLEE Felipe on 12/28/23 09:37 UA Urobilinogen 0.2 mg/dL Last Edit by KAYLEE Felipe on 12/28/23 09:3 7 UA Protein 0 mg/dL Last Edit by KAYLEE Felipe on 12/28/23 09:37 UA pH 7.0 Last Edit by KAYLEE Felipe on 12/28/23 09:37 UA Blood 0 Jeff/uL Last Edit by KAYLEE Felipe on 12/28/23 09:37 UA Specific Mcgee 1.015 Last Edit by KAYLEE Felipe on 12/28/23 09: 37 UA Ketone Negative Last Edit by KAYLEE Felipe on 12/28/23 09:37 UA Bilirubin 0 mg/dL Last Edit by KAYLEE Felipe on 12/28/23 09:37 UA Glucose 0 mg/dL Last Edit by KAYLEE Felipe on 12/28/23 09:37 Results Reviewed Results Reviewed: Laboratory Last Values Urine pH (Auto) 7.0 12/28/23 09:32 Specific Mcgee (Auto) 1.015 12/28/23 09:32 Urine Protein (Auto) 0 mg/dL 12/28/23 09:32 Glucose (UA)(Auto) 0 mg/dL 12/28/23 09:32 Urine Ketones (Auto) Negative 12/28/23 09:32 Urine Blood (Auto) 0 Jeff/uL 12/28/23 09:32 Urine Nitrite (Auto) Negative 12/28/23 09:32 Urine Bilirubin (Auto) 0 mg/dL 12/28/23 09:32 Urine Urobilinogen (Auto) 0.2 mg/dL 12/28/23 09:32 Leukocyte Esterase (Auto) 0 Freddy/uL 12/28/23 09:32 Assessment & Plan Assessment & Plan (1) Balanitis: Code(s): N48.1 - Balanitis Category: Medical (2) Rash and nonspecific skin eruption: Code(s): R21 - Rash and other nonspecific skin eruption Category: Medical (3) Dermatitis: Code(s): L30.9 - Dermatitis, unspecified Category: Medical Plan Currently on antifungal treatment. Discussed if rash on thigh and lower abdomen does not improve he should see a butadiene converter helper. Orders: Orders AMB Urinalysis Automated 12/28/23 Z13.9 - Encounter for screening, unspecified Patient Instructions: The patient had an opportunity to ask questions regarding treatment plan. The patient expressed understanding and agreement with the above treatment plan. The patient is aware they should contact our office by phone for worsening of their current condition or the appearance of new symptoms. Compliance is encouraged with any medications and followup testing that is ordered. It is a privilege to be allowed the opportunity to participate in the urologic care of your patient. If you have any questions or concerns regarding treatment for the above conditions please do not hesitate to contact me. The office telephone contact is [phone]. This note is constructed in part using voice recognition software. While every effort has been made to ensure accuracy investigation division lieutenant errors may have been included. Yours sincerely, Valeriano Alas MD Coding Level of Care Code New Pt Level 4 (95683) Diagnoses Balanitis N48.1 Rash and nonspecific skin eruption R21 Dermatitis L30.9 Time Spent (min) 45
== END 2023-12-28 11:35 | disposition home or self-care (01) ==
PROVIDERS: PCP Nurse Practitioner Family; Visit Provider Urology
DX: N48.1 Balanitis (principal); R21 Rash and other nonspecific skin eruption; L30.9 Dermatitis, unspecified
CPT/HCPCS: 99204

== ENCOUNTER → 2023-12-28 09:19 | Outpatient (BNVA) | payer OTHER, SELFPAY | PROVIDERS: PCP Nurse Practitioner Family; Visit Provider Urology | DX: N48.1 Balanitis (principal); R21 Rash and other nonspecific skin eruption; L30.9 Dermatitis, unspecified | CPT/HCPCS: 81003 ==

== ENCOUNTER 2024-04-04 08:01 | Outpatient (AMB) | payer OTHER, SELFPAY ==
--- NOTE | 2024-04-04 08:03 | AM.OFFWIN_ITS ---
Intake Vital Signs 04/04/24 08:04 Height 5 ft 11 in Weight 264 lb BMI 36.8 BP 114/80 Blood Pressure Location Rt brachial Position Sitting Pulse 72 Pulse Source Pulse Oximeter Temp 98.3 F Temp Source Oral Pulse Oximetry (%) 98 Oxygen Delivery Method Room Air Intake Visit Reasons: EP Balanitis not getting better? Intake Note: pt c/o Balanitis. Ongoing Patient Tobacco Use Status: Never used Tobacco Allergies No Known Allergies Allergy (Verified 04/04/24 08:04) Do you need a note to return to daycare/school/sports/work: No HPI HPI Comments History of Present Illness Details 24 y/o male patient who presents to the walk in clinic with c/o Recurrent Tinea infections on around his Penis. He has been seen multiple times for this. Last visit with PCP he was prescribed Fluconazole 200 mg Qwk and Ketoconazole cream. Reports that the rash went away completely at that time. [facility] Surgical History No pertinent past surgical history Family History Father Substance use disorder Social History Housing: House Patient Tobacco Use Status: Never used Tobacco e-Cigarette/Vaping Use: Never Used Second Hand Smoke Exposure: Yes service: No Current occupational status: employed Current occupation: [employer] Current occupational exposures/hazards: Yes Cognitive needs: No Hearing needs: No Vision needs: No Review of Systems Const All systems reviewed & are unremarkable except as noted in HPI and below Physical Exam Vital Signs: Last Vital Signs Temp 98.3 F 04/04/24 08:04 Pulse 72 04/04/24 08:04 BP 114/80 04/04/24 08:04 Pulse Ox 98 04/04/24 08:04 Oxygen Delivery Method Room Air 04/04/24 08:04 BMI result Body Mass Index 36.8 Male General Exam: No hernia, No inguinal lymphadenopathy and Yes Genital lesions present (Small lesion under fore-skin) Penis: uncircumcised, erythematous and Genital lesions present (Small lesion under fore-skin) Meatus: meatus normal Scrotum: scrotum normal Skin Other: Small lesion, on the back of Fore-skin. Assessment & Plan Assessment & Plan (1) Balanitis: Code(s): N48.1 - Balanitis Plan: Prescribed Fluconazole 200 mg Qwk for 4 weeks Continue using Ketoconazole as directed Advised Circumcision if symptoms continue Discusses proper Hygiene. Medications: New fluconazole TAKE 1 TABLET ONCE A WEEK FOR 4 WEEKS. 200 mg PO DAILY 4 tabs 1RF N48.1 - Balanitis Coding Level of Care Code Est Pt Level 3 (23314) Diagnoses Balanitis N48.1 Time Spent (min) 15
[2024-04-04 08:04] VITALS: BP 114/80; PULSE 72; TEMP 36.8; O2SAT 98; BMI 36.8
== END 2024-04-04 08:36 | disposition home or self-care (01) ==
PROVIDERS: PCP Nurse Practitioner Family; Visit Provider Nurse Practitioner Family
DX: N48.1 Balanitis (principal)

== ENCOUNTER → 2024-04-04 08:01 | Outpatient (BNVA) | payer OTHER, SELFPAY | PROVIDERS: PCP Nurse Practitioner Family | DX: N48.1 Balanitis (principal) ==

== ENCOUNTER 2024-06-25 10:22 | Outpatient (AMB) | payer OTHER, SELFPAY ==
--- NOTE | 2024-06-25 10:25 | A.OFFPC_ITS ---
Vital Signs 06/25/24 10:27 Height 5 ft 11 in Weight 263 lb BMI 36.7 BP 120/80 Blood Pressure Location Rt brachial Position Sitting Pulse 76 Pulse Source Pulse Oximeter Pulse Oximetry (%) 97 Intake Visit Reasons: Annual PE Intake Note: pt is here for annual exam Allergies No Known Allergies Allergy (Verified 06/25/24 10:28) Medication List - Last Reconciled 06/25/24 by NEVA Nagy- clotrimazole 1% 1 appl topical BID 4 weeks fluconazole 200 mg PO DAILY ketoconazole 2% 1 appl topical DAILY Tobacco use date assessed: 10/08/23 Dental Screening Dental Screen Date: 10/08/23 HPI Annual PE HPI Details History of Present Illness The patient is a 24-year-old male presenting for a wellness physical examination. Past medical history is significant for dermatitis and balanitis. The patient experienced a recurrence of dermatitis on the back of his knee, which resolved after resuming medication. He reports balanitis improving significantly over the last few weeks with treatment. He mentioned transient diarrhea during a recent illness, which has since resolved. Health Maintenance - Discussion on lifestyle choice: smokin g avoidance, occasional alcohol consumption - Encouragement of hydration and balance d diet considering work shift complications Social History - Lives with mother and stepfather - Currently employed at a [employer] - Occasional cannabis use; reports no to bacco use; drinks alcohol occasionally after cessation of medication Review of Systems - Dermatological: Denies current skin le sions or concerns - Gastrointestinal: Denies current diarr hea, constipation, recent transient diarrhea reported - Respiratory: Denies fevers, chills, sh ortness of breath - Neurological: Denies dizziness, balanc e issues, fainting -denies any cp Physical Exam General: Cooperative, healthy appearing, comfortable, no acute distress and well developed Orientation: Patient oriented x3 Limitations: No limitations Head: Normal to inspection Ears: Hearing grossly normal bilaterally Nose: Normal external nose present Face and sinus: Normal facial exam Eyes: Appearance normal, both eyes and all related structures Neck: Normal visual inspection and Yes full ROM Respiratory: Normal respiratory effort and able to speak in complete sentences. Clear to auscultation bilaterally Cardiovascular: Regular rate and rhythm. Normal S1 and S2 :no balanitis noted, GI: Normal to inspection. Soft to palpation and nontender, but patient reported diarrhea for a little while Skin: No rashes or lesions noted, Neuro: Patient oriented x3 Extremities: Normal to inspection Results Plan - Continue current treatment for balanit is; monitor for complete resolution - Dermatological follow-up if dermatitis recurs - Encourage balanced diet and regular me als despite work schedule constraints - No additional smoking cessation measur es needed given patient's abstinence and household rules Patient was informed and verbally consented to the use of an ambient scribe for clinic note documentation during this visit. Discussion Notes I reviewed the patient's improving condition of balanitis, emphasizing the positive response to current treatment. We discussed the importance of maintaining a consistent skincare regimen to address dermatitis if it redevelops. I explained the significance of a regular diet and hydration, especially given times of irregular work shifts, and applauded his proactive decision of abstaining from smoking. We discussed safe alcohol consumption practices, particularly ensuring no interactions with medications. Patient Instructions - Continue prescribed treatment for edison nitis - Maintain consistent skincare routine - Drink adequate amounts of water daily - Resume regular balanced meals regardle ss of shift schedule - Avoid tobacco and manage safe alcohol use, especially while off medications - Schedule a follow-up if skin condition s [id number] [facility] Surgical History No pertinent past surgical history Family History Father Substance use disorder Social History Housing: House Patient Tobacco Use Status: Never used Tobacco e-Cigarette/Vaping Use: Never Used Second Hand Smoke Exposure: Yes service: No Current occupational status: employed Current occupation: [employer] Current occupational exposures/hazards: Yes Cognitive needs: No Hearing needs: No Vision needs: No Questionnaire PHQ-9 Over the last 2 weeks, how often have you been bothered by any of the following problems? 1. Little interest or pleasure in doing things: not at all 2. Feeling down, depressed, or hopeless: several days 3. Trouble falling or staying asleep, or sleeping too much: not at all 4. Feeling tired or having little energy: not at all 5. Poor appetite or overeating: several days 6. Feeling bad about yourself - or that you are a failure or have let yourself or your family down: several days 7. Trouble concentrating on things, such as reading the newspaper or watching television: not at all 8. Moving or speaking so slowly that other people could have noticed. Or the opposite - being so fidgety or restless that you have been moving around a lot more than usual: not at all 9. Thoughts that you would be better off or of hurting yourself in some way: not at all Total score: 3 Depression Screening Interpretation: Negative Depression Screening Done: Yes 47435 - PHQ-9 Billing: Yes Source: Developed by Drs. Sami Simon, Harmony Puga, Yoav Watkins and colleagues, with an educational shirley from [employer]. Thrive Questionnaire Date Thrive assessed: 10/08/23 I am a: Patient What is your living situation today?: I have a steady place to live Within the past 12 months, did the food you bought not last and you didn't have the money to get more?: Never true Within the past 12 months, did you worry whether your food would run out before you got money to buy more?: Never true Do you have trouble paying for medicines?: No Do you have trouble getting transportation to medical appointments?: No Do you have trouble paying your heating and electricity bill?: No Do you have trouble taking care of your child, family member or friend?: No Do you have trouble with day-to-day activities such as bathing, preparing meals, shopping, managing finances, etc.?: No Are you currently unemployed and looking for a job?: No Are you interested in more education?: No Please select the resources that you would like help with: None Currently or been in a relationship where the following occur: No concerns reported THRIVE Score: 0 AUDIT C Alcohol Use Questionnaire (AUDIT-C) 1. How often do you have a drink containing alcohol?: Monthly or less 2. How many drinks containing alcohol do you have on a typical day when you are drinking?: 3 or 4 3. How often do you have six or more drinks on one occasion?: Less than monthly Total Score: 3 GISELA-7 AMB Questionnaire GISELA-7 Date GISELA - 7 assessed: 10/08/23 Feeling nervous, anxious, or on edge: 1 = Several days Not being able to stop or control worryin = Several days Worrying too much about different things: 1 = Several days Trouble relaxin = Not at all Being so restless that it is hard to sit still: 0 = Not at all Becoming easily annoyed or irritable: 1 = Several days Feeling afraid as if something awful might happen: 1 = Several days Total GISELA-7 score (0-4 normal; 5-9 mild; 10-14 moderate; 15-21 severe): 5 Source: Developed by Drs. Sami Simon, Harmony Puga, Yoav Watkins and colleagues, with an educational shirley from [employer]. Physical exam (Primary Care) Vital Signs: Last Vital Signs Pulse 76 06/25/24 10:27 BP 120/80 06/25/24 10:27 Pulse Ox 97 06/25/24 10:27 BMI result Body Mass Index 36.7 Tobacco/Smoking Status: Tobacco use Status Tobacco use date assessed 10/08/23 06/25/24 10:27 Patient Tobacco Use Status Never used Tobacco 06/25/24 10:27 e-Cigarette/Vaping Use Never Used 06/25/24 10:27 PHQ-9: PHQ-9 Score PHQ-9: Total score 3 06/25/24 10:27 Depression Screening Interpretation: Negative Thrive Assessment: Date of Thrive Assessment Date Thrive assessed 10/08/23 06/25/24 10:27 Currently or been in a relationship where the following occur: No concerns reported Coding Level of Care Code Est Pt Prev Care 18-39y(92903) Diagnoses Physical exam Z00. Additional Codes PHQ-9 - 61172 - PHQ-9 Billing: Yes ([id number]) Assessment & Plan Assessment & Plan (1) Physical exam: Code(s): Z00.00 - Encounter for general adult medical examination without abnormal findings Category: Medical Plan . Orders: Orders Complete Blood Count Auto Diff Today Z00.00 - Encounter for general adult medical examination without abnormal findings Comprehensive [place]. Panel Fast Today Z00.00 - Encounter for general adult medical examination without abnormal findings TSH reflex Free T4 Today Z00.00 - Encounter for general adult medical examination without abnormal findings UA CC w/rflx Micro + Cult Today Z00.00 - Encounter for general adult medical examination without abnormal findings Lipid Panel Today Z00.00 - Encounter for general adult medical examination without abnormal findings
[2024-06-25 10:27] VITALS: BP 120/80; PULSE 76; O2SAT 97; BMI 36.7
== END 2024-06-25 10:57 | disposition home or self-care (01) ==
PROVIDERS: PCP Nurse Practitioner Family; Visit Provider Nurse Practitioner Family
DX: Z00.00 Encounter for general adult medical examination without abnormal findings (principal)

== ENCOUNTER → 2024-06-25 10:22 | Outpatient (BNVA) | payer OTHER, SELFPAY | PROVIDERS: PCP Nurse Practitioner Family; Visit Provider Nurse Practitioner Family | DX: Z00.00 Encounter for general adult medical examination without abnormal findings (principal) | CPT/HCPCS: 96127 ==

== ENCOUNTER 2024-07-12 09:03 | Outpatient (AMB) | payer OTHER, SELFPAY ==
--- NOTE | 2024-07-12 09:07 | MHC.OFFWIV ---
Intake Vital Signs 07/12/24 09:08 Weight 271 lb 2 oz BP 122/84 Blood Pressure Location Lt brachial Position Sitting Pulse 87 Pulse Source Pulse Oximeter Pulse Oximetry (%) 97 Oxygen Delivery Method Room Air Intake Visit Reasons: EP discomfort in testicles, cut on hand Intake Note: Patient here for testicle discomfort that has been present for a couple of days and would also like to talk about a cut on left hand that happened 2 days ago Patient Tobacco Use Status: Never used Tobacco Allergies No Known Allergies Allergy (Verified 07/12/24 09:13) Do you need a note to return to daycare/school/sports/work: No HPI EP discomfort in testicles, cut on hand HPI Details e discomfort that has been present for a couple of days and would also like to talk about a cut on left hand that happened 2 days ago PFS Surgical History No pertinent past surgical history Family History Father Substance use disorder Social History Housing: House Patient Tobacco Use Status: Never used Tobacco e-Cigarette/Vaping Use: Never Used Second Hand Smoke Exposure: Yes service: No Current occupational status: employed Current occupation: [employer] Current occupational exposures/hazards: Yes Cognitive needs: No Hearing needs: No Vision needs: No Review of Systems Const All systems reviewed & are unremarkable except as noted in HPI and below Physical Exam Vital Signs: Last Vital Signs Pulse 87 07/12/24 09:08 BP 122/84 07/12/24 09:08 Pulse Ox 97 07/12/24 09:08 Oxygen Delivery Method Room Air 07/12/24 09:08 Results AMB Urinalysis, Automated UA Leukoctes 0 Freddy/uL Last Edit by CAESAR Cantu on 07/12/24 10:20 UA Nitrite Negative Last Edit by CAESAR Cantu on 07/12/24 10:20 UA Urobilinogen 0.2 mg/dL Last Edit by CAESAR Cantu on 07/12/24 10:20 UA Protein 15 mg/dL Last Edit by CAESAR Cantu on 07/12/24 10:20 UA pH 6.5 Last Edit by [facility] [place] on 07/12/24 10:20 UA Blood 0 Jeff/uL Last Edit by Monique-[facility], [facility] [place] on 07/12/24 10:20 UA Specific [place] 1.020 Last Edit by [facility], [facility] [place] on 07/12/24 10:20 UA Ketone Negative Last Edit by [facility], [facility] [place] on 07/12/24 10:20 UA Bilirubin 0 mg/dL Last Edit by Monique-[facility], [facility] [place] on 07/12/24 10:20 UA Glucose 0 mg/dL Last Edit by [facility], [facility] [place] on 07/12/24 10:20 Results Reviewed Results Reviewed: Laboratory Last Values Urine Color Yellow 07/12/24 09:03 Urine Appearance Turbid 07/12/24 09:03 Urine pH 7.0 (5.0-9.0) 07/12/24 09:03 Urine pH (Auto) 6.5 07/12/24 10:18 Ur Specific [place] 1.025 (1.005-1.025) 07/12/24 09:03 Specific [place] (Auto) 1.020 07/12/24 10:18 Urine Protein Negative mg/dL (Neg-Trace) 07/12/24 09:03 Urine Protein (Auto) 15 mg/dL 07/12/24 10:18 Urine Glucose (UA) Negative mg/dL (Negative) 07/12/24 09:03 Glucose (UA)(Auto) 0 mg/dL 07/12/24 10:18 Urine Ketones Trace mg/dL (Negative) 07/12/24 09:03 Urine Ketones (Auto) Negative 07/12/24 10:18 Urine Blood Negative (Negative) 07/12/24 09:03 Urine Blood (Auto) 0 Jeff/uL 07/12/24 10:18 Urine Nitrite Negative (Negative) 07/12/24 09:03 Urine Nitrite (Auto) Negative 07/12/24 10:18 Urine Bilirubin (Auto) 0 mg/dL 07/12/24 10:18 Urine Urobilinogen (Auto) 0.2 mg/dL 07/12/24 10:18 Ur Leukocyte Esterase Negative (Negative) 07/12/24 09:03 Leukocyte Esterase (Auto) 0 Freddy/uL 07/12/24 10:18 Assessment & Plan Assessment & Plan Plan Patient reports he has not been sexually active in many years, so STD testing not needed. Orders: Orders AMB Urinalysis Automated Today Z13.9 - Encounter for screening, unspecified UA CC w/rflx Micro + Cult Today R30.0 - Dysuria Medications: Changed From ketoconazole 2% 1 appl topical DAILY 60 grams 0RF To ketoconazole 2% 1 appl topical DAILY 60 grams 0RF 2 weeks Coding Level of Care Code Est Pt Level 4 (33892)
[2024-07-12 09:08] VITALS: BP 122/84; PULSE 87; O2SAT 97
[2024-07-12 11:33] LABS: Appearance Urine Turbid; Color Urine Yellow; Glucose Urine UA Negative (Negative); Leukocyte Esterase Urine Negative (Negative); Nitrite Urine Negative (Negative); Specific Gravity - Urine 1.025 (1.005-1.025); Urine Blood Negative (Negative); Urine Ketones Trace mg/dL (Negative); Urine Protein Negative (Neg-Trace)
== END 2024-07-12 10:01 | disposition home or self-care (01) ==
PROVIDERS: PCP Nurse Practitioner Family; Visit Provider Physician Assistant Medical
DX: Z13.9 Encounter for screening, unspecified (principal)

== ENCOUNTER → 2024-07-12 09:03 | Outpatient (BNVA) | payer OTHER, SELFPAY | PROVIDERS: PCP Nurse Practitioner Family; Visit Provider Physician Assistant Medical | DX: N50.82 Scrotal pain (principal); R30.0 Dysuria | CPT/HCPCS: 81003 ==

== ENCOUNTER 2024-07-22 15:09 | Outpatient (REF) | payer OTHER, SELFPAY ==
--- NOTE | ~2024-07-22 | US_ITS ---
CLINICAL HISTORY: N50.819 - Testicular pain, unspecified US Scrotum with Doppler Comparison: None Findings: Right testicle normal size and echotexture, 4.9 x 2.3 x 4.3 cm. Left testicle normal size and echotexture, 5.1 x 2.4 x 3.5 cm. Normal color flow and arterial/venous spectral tracing of both testicles. Normal epididymides. No varicoceles. Small bilateral hydroceles. IMPRESSION: Small bilateral hydroceles. Otherwise, normal scrotal ultrasound. No evidence of torsion. This document has been electronically signed by: Naman Lutz MD on 07/23/2024 09:10:23
== END 2024-07-22 15:10 | disposition home or self-care (01) ==
LOC: HO.HMGCX 15:09
PROVIDERS: PCP Nurse Practitioner Family; Visit Provider Nurse Practitioner Family
DX: N50.812 Left testicular pain (principal); N50.811 Right testicular pain
CPT/HCPCS: 76870

== ENCOUNTER → 2024-07-22 15:15 | Outpatient (BNV) | payer OTHER, SELFPAY | PROVIDERS: PCP Nurse Practitioner Family; Visit Provider Radiology Diagnostic Radiology | DX: N50.819 Testicular pain, unspecified (principal) | CPT/HCPCS: 76870 ==

== ENCOUNTER 2024-08-04 15:01 | Outpatient (AMB) | payer OTHER, SELFPAY ==
[2024-08-04 15:18] VITALS: BP 112/78; PULSE 96; O2SAT 98; BMI 37.4
--- NOTE | 2024-08-04 15:18 | A.OFFPC_ITS ---
Vital Signs 08/04/24 15:18 Height 5 ft 11 in Weight 268 lb BMI 37.4 BP 112/78 Blood Pressure Location Rt brachial Position Sitting Pulse 96 Pulse Source Pulse Oximeter Pulse Oximetry (%) 98 Oxygen Delivery Method Room Air Intake Visit Reasons: rash f/up Intake Note: Pt is here today for a follow up on rash. Allergies No Known Allergies Allergy (Verified 08/04/24 15:21) Tobacco use date assessed: 08/04/24 Dental Screening Dental Screen Date: 10/08/23 HPI rash f/up HPI Details Chief Complaint Recurrent rash on the genital region History of Present Illness The patient is a 24-year-old male presenting with recurrent rash on the genital region. He reports experiencing a persistent rash for which he previously received treatments including antifungal medications and hydrocortisone, both of which provided significant relief. However, the rash has recurred. He associated the flare-ups of the rash primarily with friction, likely exacerbated by frequent masturbation, occurring twice daily on average. The patient observes that his skin appears irritated, particularly noted on the distal right shaft, where faint redness is evident. He denies any lesions or signs of balanitis on the glans penis. Personal hygiene routine includes cleansing the area once daily using mild soap and water. Social History - No social determinants of health discu ssed. Health Maintenance Review of Systems - Dermatological: Reports skin irritatio n and faint redness, denies lesions in the genital area. Physical Exam General: Cooperative, healthy appearing, comfortable, no acute distress and well developed Orientation: Patient oriented x3 Limitations: No limitations Head: Normal to inspection Ears: Hearing grossly normal bilaterally Nose: Normal external nose present Face and sinus: Normal facial exam Eyes: Appearance normal, both eyes and all related structures Neck: Normal visual inspection and Yes full ROM Respiratory: Normal respiratory effort and able to speak in complete sentences. Clear to auscultation bilaterally Cardiovascular: Regular rate and rhythm. Normal S1 and S2 GI: Normal to inspection. Soft to palpation and nontender Skin: Faint macular erythema along the distal right shaft, otherwise pretty clear. No signs of balanitis noted to glans penis. Neuro: Patient oriented x3 Extremities: Normal to inspection Results Plan - Advised using lubricants during mastur bation to minimize friction and irritation. - Recommended decreasing the frequency o f masturbation to alleviate skin irritation. - Reinforced the use of mild soap and ro utine cleaning methods to maintain hygiene without irritating the rash. Patient was informed and verbally consented to the use of an ambient scribe for clinic note documentation during this visit. Discussion Notes I discussed with the patient the suspected diagnosis of irritative dermatitis due to friction. Management strategies, such as using lubricants during masturbation and reducing frequency, were reviewed. I emphasized the importance of maintaining proper hygiene without over-irritating the area. The patient was advised that if symptoms persist or worsen, further evaluation may be necessary. Follow up visit plans were not specified. Patient Instructions - Use lubricants during masturbation to reduce skin friction. - Attempt to reduce how frequently you m asturbate to prevent irritation. - Continue cleaning the area once a day with a mild soap and water. - Observe the rash and seek further medi lydia evaluation if symptoms persist or worsen. [facility] Surgical History No pertinent past surgical history Family History Father Substance use disorder Social History Housing: House Patient Tobacco Use Status: Never used Tobacco e-Cigarette/Vaping Use: Never Used Second Hand Smoke Exposure: Yes service: No Current occupational status: employed Current occupation: [employer] Current occupational exposures/hazards: Yes Cognitive needs: No Hearing needs: No Vision needs: No Questionnaire PHQ-9 Over the last 2 weeks, how often have you been bothered by any of the following problems? 1. Little interest or pleasure in doing things: not at all 2. Feeling down, depressed, or hopeless: several days 3. Trouble falling or staying asleep, or sleeping too much: not at all 4. Feeling tired or having little energy: not at all 5. Poor appetite or overeating: several days 6. Feeling bad about yourself - or that you are a failure or have let yourself or your family down: several days 7. Trouble concentrating on things, such as reading the newspaper or watching television: not at all 8. Moving or speaking so slowly that other people could have noticed. Or the opposite - being so fidgety or restless that you have been moving around a lot more than usual: not at all 9. Thoughts that you would be better off or of hurting yourself in some way: not at all Total score: 3 Depression Screening Interpretation: Negative Depression Screening Done: Yes 83803 - PHQ-9 Billing: Yes Source: Developed by Drs. Sami Simon, Harmony Puga, Yoav Watkins and colleagues, with an educational shirley from [employer]. Thrive Questionnaire Date Thrive assessed: 08/04/24 I am a: Patient What is your living situation today?: I have a steady place to live Within the past 12 months, did the food you bought not last and you didn't have the money to get more?: Never true Within the past 12 months, did you worry whether your food would run out before you got money to buy more?: Never true Do you have trouble paying for medicines?: No Do you have trouble getting transportation to medical appointments?: No Do you have trouble paying your heating and electricity bill?: No Do you have trouble taking care of your child, family member or friend?: No Do you have trouble with day-to-day activities such as bathing, preparing meals, shopping, managing finances, etc.?: No Are you currently unemployed and looking for a job?: No Are you interested in more education?: No Please select the resources that you would like help with: None Currently or been in a relationship where the following occur: I choose not to answer THRIVE Score: 0 AUDIT C Alcohol Use Questionnaire (AUDIT-C) 1. How often do you have a drink containing alcohol?: Monthly or less 2. How many drinks containing alcohol do you have on a typical day when you are drinking?: 5 or 6 3. How often do you have six or more drinks on one occasion?: Less than monthly Total Score: 4 Score Reviewed/Action Taken: Yes GISELA-7 AMB Questionnaire GISELA-7 Date GISELA - 7 assessed: 08/04/24 Feeling nervous, anxious, or on edge: 1 = Several days Not being able to stop or control worryin = Several days Worrying too much about different things: 1 = Several days Trouble relaxin = Not at all Being so restless that it is hard to sit still: 2 = More than half the days Becoming easily annoyed or irritable: 1 = Several days Feeling afraid as if something awful might happen: 1 = Several days Total GISELA-7 score (0-4 normal; 5-9 mild; 10-14 moderate; 15-21 severe): 7 Source: Developed by Drs. Sami Simon, Harmony Puga, Yoav Watkins and colleagues, with an educational shirley from [employer]. GISELA-7 Assessment Billing GISELA-7 Assessment Tool: GISELA-7 Assessment [id number] Physical exam (Primary Care) Vital Signs: Last Vital Signs Pulse 96 08/04/24 15:18 BP 112/78 08/04/24 15:18 Pulse Ox 98 08/04/24 15:18 Oxygen Delivery Method Room Air 08/04/24 15:18 BMI result Body Mass Index 37.4 Tobacco/Smoking Status: Tobacco use Status Tobacco use date assessed 08/04/24 08/04/24 15:26 Patient Tobacco Use Status Never used Tobacco 08/04/24 15:26 e-Cigarette/Vaping Use Never Used 08/04/24 15:26 PHQ-9: PHQ-9 Score PHQ-9: Total score 3 08/04/24 15:29 Depression Screening Interpretation: Negative Thrive Assessment: Date of Thrive Assessment Date Thrive assessed 08/04/24 08/04/24 15:29 Currently or been in a relationship where the following occur: I choose not to answer Coding Level of Care Code Est Pt Level 3 (38982) Diagnoses Dermatitis L30.9 Additional Codes GISELA-7 Assessment Billing - GISELA-7 Assessment Tool: GISELA-7 Assessment [id number] ([id number]) PHQ-9 - 81926 - PHQ-9 Billing: Yes ([id number]) Assessment & Plan Assessment & Plan (1) Dermatitis: Code(s): L30.9 - Dermatitis, unspecified Category: Medical Plan .
== END 2024-08-04 15:59 | disposition home or self-care (01) ==
PROVIDERS: PCP Nurse Practitioner Family; Visit Provider Nurse Practitioner Family
DX: L30.9 Dermatitis, unspecified (principal)

== ENCOUNTER → 2024-08-04 15:01 | Outpatient (BNVA) | payer OTHER, SELFPAY | PROVIDERS: PCP Nurse Practitioner Family; Visit Provider Nurse Practitioner Family | DX: L30.9 Dermatitis, unspecified (principal) | CPT/HCPCS: 96127 ==

== ENCOUNTER 2024-10-30 08:07 | Outpatient (AMB) | payer OTHER, SELFPAY ==
--- NOTE | 2024-10-29 19:01 | A.OFFVIS_ITS ---
Intake Visit Reasons: balanitis Intake Note: Patient presents to the office today for Balanitis Urology Meds- None Allergies to Antibiotic- No Known Allergies Blood Thinner- None Media Strategist Required: No Accompanied by: Self / Same As Patient Allergies No Known Allergies Allergy (Verified 10/30/24 08:23) HPI Comments Details: --Jose is a 23-year-old male who is here with complaints of recurrent balanitis. 12/28/23--Jose is a 23-year-old male who is here with complaints of recurrent balanitis. The patient is circumcised and complains of irritation around the glans of the penis. The patient has been treated with an antifungal cream by PCP and states that the area has healed. More recently he has noted pruritus around the scrotum and a rash that has extended to the lower abdomen and down his inner thighs. He complains that it is very irritating and he has been scratching. On evaluation there are red papular changes that may be type of reactive dermatitis, etiology is unclear. He is currently on fluconazole prescribed by PCP. He states that he plans to see a spring former if the rash does not improve. Examination of the penis the glans is unremarkable. I have recommended as well that if the rash persists that he does need to see a spring former. He will call for recurrent irritation/inflammation of the penis. 45 minutes spent in review of records pertaining to this visit and including [id number] discussion with the patient and documentation of this visit. [facility] Surgical History No pertinent past surgical history Family History Father Substance use disorder Social History Housing: House Patient Tobacco Use Status: Never used Tobacco e-Cigarette/Vaping Use: Never Used Second Hand Smoke Exposure: Yes service: No Current occupational status: employed Current occupation: [employer] Current occupational exposures/hazards: Yes Cognitive needs: No Hearing needs: No Vision needs: No Results AMB Urinalysis, Automated UA Leukoctes 0 Freddy/uL Last Edit by Parul Mars on 10/30/24 16:17 UA Nitrite Negative Last Edit by Parul Mars on 10/30/24 16:17 UA Urobilinogen 0.2 mg/dL Last Edit by Parul Mars on 10/30/24 16:17 UA Protein 15 mg/dL Last Edit by Parul Mars on 10/30/24 16:17 UA pH 6.0 Last Edit by Parul Mars on 10/30/24 16:17 UA Blood 0 Jeff/uL Last Edit by Parul Mars on 10/30/24 16:17 UA Specific [place] 1.020 Last Edit by Parul Mars on 10/30/24 16:17 UA Ketone Negative Last Edit by Parul Mars on 10/30/24 16:17 UA Bilirubin 0 mg/dL Last Edit by Parul Mars on 10/30/24 16:17 UA Glucose 0 mg/dL Last Edit by Parul Mars on 10/30/24 16:17 Assessment & Plan Assessment & Plan Orders: Orders AMB Urinalysis Automated Today Z13.9 - Encounter for screening, unspecified Coding
--- OUTSIDE RECORDS SUMMARY | 2024-10-30 08:22 | XMS_ITS | Clinical Summary ---
Author Organization [facility] Address [address] [place] [address] Phone Care Team Providers Care Contract Assistant Name Role Phone Unavailable Primary Care Provider Unavailabl e Allergies No known active allergies Medications No known medications Active Problems Problem Noted Date Diagnosed Date Attention-deficit hyperactiv ity disorder, predominantly hyperactive type 04/23/2015 Depression with anxiety 04/23/2015 Lactose intolerance 04/23/2015 Pediatric body mass index (B MO) of greater than or equal to 95th percentile for age 1004/23/2015 Immunizations Immunization Administration Dates Next Due DTaP 12/21/2003, 1,1999,06/22,1999 HPV Vaccine 9 Valent 08/06/2018,06/26/2017,05/10 Hep A, Adult 08/06/2018 Hep A, ped/adol 06/26/2017 Hep B, ped/adol 1999,1999,1999 Hib (PRP-T) 08/14/2000, 0,1999,05/04 IPV 12/21/2003, 0,1999,05/04 Influenza, injectable, quadr ivalent, preservative free 06/26/2017,04/27/2015 MMR 05/10/2016,03/24/2003,04/18/2000 Meningococcal Conj (Menactra) MCV4P 04/27/2015,0 02/09/2012 Pneumococcal Conjugate 08/14/2000,04/18/2000 Tdap 02/09/2012 Unknown Vaccine 11/06/2000 Varicella 01/02/2008,04/09/2000 Family History Medical History Relation Name Comments Sudden Father MVA Aneurysm Maternal Grandmother cerebra l aneurysm- handicapped Hyperlipidemia Mother Hypertension Mother Brain cancer Paternal Grandfather Relation Name Status Comments Father bipolar, alcoho l abuse, car accident Maternal Grandfather Alive Maternal Grandmother Alive handica pped cerebral anuerysm, SOWMYA Mother Alive hypertension, h yperlipidemia, overweight, SOWMYA Other Alive Siblings: 1/2 s ib Paternal Grandfather brain t umor Paternal Grandmother Alive Social History Tobacco Use Types Packs/Day Years Used Date Smoking Tobacco: Never Smokeless Tobacco: Never Sex and Gender Information Value Date Recorded Sex Assigned at Not on file Legal Sex Male 6:24 PM EDT Gender Identity Not on file Sexual Orientation Not on file Last Filed Vital Signs Vital Sign Reading Time Taken Comments Blood Pressure 132/88 08/11/2019 3:50 PM EST Pulse 121 09/12/2017 12:00 AM EST Temperature 36.3 ??C (97.3 ??F) 09/12/2017 12:[address] Respiratory Rate - - Oxygen Saturation 99% 09/12/2017 12:00 AM EST Inhaled Oxygen Concentration - - Weight 127 kg (280 lb) 08/11/2019 3:50 PM EST Height 180.3 cm (5' 11 ) 08/11/2019 3:50 PM EST Body Mass Index 39.05 08/11/2019 3:50 PM EST Plan of Treatment Health Maintenance Due Date Last Done Comments DTaP,Tdap,and Td Vaccines (7 - Td or Tdap) 02/08/2022 02/09/2012, 12/21/2003, 08/14/2000, Additional history exists Influenza Vaccines (#1) 2024 06/26/2017, 04/27 COVID-19 Vaccine ( season) 2024 12/16/2020, 11/25/2020 Hepatitis B Vaccines Completed 1999, 1999, 1999 HIB Vaccines Completed 08/14/2000, 08/16, 1999, Additional history exists Pneumococcal Vaccine Completed 08/14/2000, 04/18/20 IPV Vaccines Completed 12/21/2003, 07/1999, 1999, Additional history exists Varicella Vaccines Completed 01/02/2008, 04/09/2000 Meningococcal Vaccine Completed 04/27/2015, 012 MMR Vaccines Completed 05/10/2016, 03/2003, 04/18/2000 HPV Vaccines Completed 08/06/2018, 06/15, 05/10/2016 Hepatitis A Vaccines Completed 08/06/2018, 06/26/20 17 Men B Vaccine Aged Out No longer silvio lacey based on patient's age to complete this topic Insurance [facility]
--- OUTSIDE RECORDS SUMMARY | 2024-10-30 08:22 | XMS_ITS | Encounter Summary ---
Author Organization [facility] Address [address] [place] [address] Phone Care Team Providers Care Single Needle Operator Name Role Phone Ada Edouard MD Primary Care Provider [phone] Encounter Details Date Type Department Care Team (Late st Contact Info) Description 12/02/2017 [facility]counter [facility] [address] [address] Ada Edouard MD [address] [place] [address] Social History Tobacco Use Types Packs/Day Years Used Date Smoking Tobacco: Never Assessed Sex and Gender Information Value Date Recorded Sex Assigned at Not on file Legal Sex Male 6:24 PM EDT Gender Identity Not on file Sexual Orientation Not on file documented as of this encounter Plan of Treatment Not on file documented as of this encounter Visit Diagnoses Not on filedocumented in this encounter Care Teams Single Needle Operator Relationship Specialty Start Date End Date Ada Edouard MD [address] [place] [address] PCP - General 11/21/17 08/01/18 documented as of this encounter
== END 2024-10-30 09:00 | disposition home or self-care (01) ==
LOC: HO.HUSH 08:08
PROVIDERS: PCP Nurse Practitioner Family; Visit Provider Urology
DX: Z13.9 Encounter for screening, unspecified (principal)

== ENCOUNTER → 2024-10-30 08:07 | Outpatient (BNVA) | payer OTHER, SELFPAY | PROVIDERS: PCP Nurse Practitioner Family; Visit Provider Urology | DX: N48.1 Balanitis (principal) | CPT/HCPCS: 81003 ==

== ENCOUNTER 2024-12-25 09:58 | Outpatient (AMB) | payer OTHER, SELFPAY ==
--- NOTE | 2024-12-25 10:01 | A.OFFPC_ITS ---
Vital Signs 12/25/24 10:04 Height 5 ft 11 in Weight 274 lb 6 oz BMI 38.3 BP 122/82 Blood Pressure Location Rt brachial Position Sitting Respiration 18 Pulse 70 Pulse Source Pulse Oximeter Temp 97.8 F Temp Source Oral Pulse Oximetry (%) 97 Oxygen Delivery Method Room Air Intake Visit Reasons: 6 months follow up Intake Note: Pt is here for 6m follow up. Allergies No Known Allergies Allergy (Verified 12/25/24 10:40) Medication List - Last Reconciled 12/25/24 by CINTHIA Nagy No Known Home Meds Tobacco use date assessed: 12/25/24 Dental Screening Dental Screen Date: 12/25/24 Did you have a dental visit in the last 12 months?: No Did you have a dental problem in the last 6 months where you did not have access to dental care?: No Was dental information given to patient?: Patient has dentist HPI 6 months follow up HPI Details Chief Complaint The patient presents for a follow-up regarding previous balanitis and weight management. History of Present Illness The patient is a 24-year-old male presenting with a follow-up visit. He has a history of balanitis, which is currently not active, with no dermatitis or redness present in the inguinal region. The patient maintains the area dry, which has helped in managing the condition. The patient is also addressing obesity and has been encouraged to work on weight management. He is planning to achieve this through dietary changes and regular exercise, as he is already attending the gym. Social History - Exercise: The patient is attending the gym regularly. Health Maintenance - Weight management: Encouraged to manag e weight through diet and exercise. Review of Systems - Integumentary: Denies dermatitis or re dness in the inguinal region. - Respiratory: Denies any respiratory sy mptoms. Physical Exam General: Cooperative, healthy appearing, comfortable, no acute distress and well developed, obese Orientation: Patient oriented x3 Limitations: No limitations Head: Normal to inspection Ears: Hearing grossly normal bilaterally Nose: Normal external nose present Face and sinus: Normal facial exam Eyes: Appearance normal, both eyes and all related structures Neck: Normal visual inspection and Yes full ROM Respiratory: Normal respiratory effort and able to speak in complete sentences. Clear to auscultation bilaterally Cardiovascular: Regular rate and rhythm. Normal S1 and S2 GI: Normal to inspection. Soft to palpation and nontender Skin: ventral side of penile shaft with very faint erythema, no signs of infecti on. groin free of erythema or irritation Neuro: Patient oriented x3 Extremities: Normal to inspection Results Plan The patient will continue to manage balanitis by keeping the affected area dry, which has been effective in preventing recurrence. For obesity, the patient is advised to focus on weight management through dietary modifications and regular physical activity, as he is already attending the gym. A follow-up appointment is scheduled in six months for a comprehensive physical examination. Discussion Notes I discussed with the patient the importance of keeping the affected area dry to manage balanitis effectively. We also talked about the need for weight management through diet and exercise, and I encouraged him to continue his gym routine. A follow-up visit was planned in six months for a full physical examination. Patient Instructions - Keep the affected area dry to prevent balanitis recurrence. - Focus on weight management through t and regular exercise. - Return for a full physical examination in six months. [facility] Surgical History No pertinent past surgical history Family History Father Substance use disorder Social History Housing: House Patient Tobacco Use Status: Never used Tobacco e-Cigarette/Vaping Use: Currently Using Second Hand Smoke Exposure: Yes service: No Current occupational status: employed Current occupation: [employer] Current occupational exposures/hazards: Yes Cognitive needs: No Hearing needs: No Vision needs: No Questionnaire PHQ-9 Over the last 2 weeks, how often have you been bothered by any of the following problems? 1. Little interest or pleasure in doing things: not at all 2. Feeling down, depressed, or hopeless: several days 3. Trouble falling or staying asleep, or sleeping too much: not at all 4. Feeling tired or having little energy: several days 5. Poor appetite or overeating: several days 6. Feeling bad about yourself - or that you are a failure or have let yourself or your family down: several days 7. Trouble concentrating on things, such as reading the newspaper or watching television: not at all 8. Moving or speaking so slowly that other people could have noticed. Or the opposite - being so fidgety or restless that you have been moving around a lot more than usual: not at all 9. Thoughts that you would be better off or of hurting yourself in some way: not at all Total score: 4 Depression Screening Interpretation: Negative Depression Screening Done: Yes 66906 - PHQ-9 Billing: Yes Source: Developed by Drs. Sami Simon, Harmony Puga, Yoav Watkins and colleagues, with an educational shirley from [employer]. Thrive Questionnaire Date Thrive assessed: 12/25/24 I am a: Patient What is your living situation today?: I have a steady place to live Within the past 12 months, did the food you bought not last and you didn't have the money to get more?: Never true Within the past 12 months, did you worry whether your food would run out before you got money to buy more?: Never true Do you have trouble paying for medicines?: No Do you have trouble getting transportation to medical appointments?: No Do you have trouble paying your heating and electricity bill?: No Do you have trouble taking care of your child, family member or friend?: No Do you have trouble with day-to-day activities such as bathing, preparing meals, shopping, managing finances, etc.?: No Are you currently unemployed and looking for a job?: No Are you interested in more education?: No Please select the resources that you would like help with: None Currently or been in a relationship where the following occur: I choose not to answer THRIVE Score: 0 GISELA-7 AMB Questionnaire GISELA-7 Date GISELA - 7 assessed: 12/25/24 Feeling nervous, anxious, or on edge: 1 = Several days Not being able to stop or control worryin = Several days Worrying too much about different things: 1 = Several days Trouble relaxin = Not at all Being so restless that it is hard to sit still: 2 = More than half the days Becoming easily annoyed or irritable: 1 = Several days Feeling afraid as if something awful might happen: 1 = Several days Total GISELA-7 score (0-4 normal; 5-9 mild; 10-14 moderate; 15-21 severe): 7 Source: Developed by Drs. Sami Simon, Harmony Puga, Yoav Watkins and colleagues, with an educational shirley from [employer]. GISELA-7 Assessment Billing GISELA-7 Assessment Tool: GISELA-7 Assessment 61624 Physical exam (Primary Care) Vital Signs: Last Vital Signs Temp 97.8 F 12/25/24 10:04 Pulse 70 12/25/24 10:04 Resp 18 12/25/24 10:04 BP 122/82 12/25/24 10:04 Pulse Ox 97 12/25/24 10:04 Oxygen Delivery Method Room Air 12/25/24 10:04 BMI result Body Mass Index 38.3 Tobacco/Smoking Status: Tobacco use Status Tobacco use date assessed 12/25/24 12/25/24 10:09 Patient Tobacco Use Status Never used Tobacco 12/25/24 10:03 e-Cigarette/Vaping Use Currently Using 12/25/24 10:09 PHQ-9: PHQ-9 Score PHQ-9: Total score 4 12/25/24 10:09 Depression Screening Interpretation: Negative Thrive Assessment: Date of Thrive Assessment Date Thrive assessed 12/25/24 12/25/24 10:09 Currently or been in a relationship where the following occur: I choose not to answer Coding Level of Care Code Est Pt Level 3 (74047) Diagnoses Tinea cruris B35.6 Balanitis N48.1 Additional Codes IGSELA-7 Assessment Billing - GISELA-7 Assessment Tool: GISELA-7 Assessment 46035 ([id number]) PHQ-9 - 02411 - PHQ-9 Billing: Yes ([id number]) Assessment & Plan Assessment & Plan (1) Tinea cruris: Code(s): B35.6 - Tinea cruris Category: Medical (2) Balanitis: Code(s): N48.1 - Balanitis Category: Medical Plan .
[2024-12-25 10:04] VITALS: BP 122/82; PULSE 70; RESP 18; TEMP 36.6; O2SAT 97; BMI 38.3
--- OUTSIDE RECORDS SUMMARY | 2024-12-25 11:14 | XMS_ITS | Encounter Summary ---
Author Organization [facility] Address [address] [place] [address] Phone Care Team Providers Care Director Strategy Name Role Phone Ada Edouard MD Primary Care Provider [phone] Encounter Details Date Type Department Care Team (Late st Contact Info) Description 12/02/2017 [facility]counter [facility] [address] [address] Ada Edouard MD [address] [place] [address] Social History Tobacco Use Types Packs/Day Years [...] on filedocumented in this encounter Care Teams Director Strategy Relationship Specialty Start Date End Date Ada Edouard MD [address] [place] [address] PCP - General 11/21/17 08/01/18 documented as of this encounter
== END 2024-12-25 10:44 | disposition home or self-care (01) ==
LOC: HO.HMCC 09:58
PROVIDERS: PCP Nurse Practitioner Family; Visit Provider Nurse Practitioner Family
DX: B35.6 Tinea cruris (principal); N48.1 Balanitis

== ENCOUNTER → 2024-12-25 09:58 | Outpatient (BNVA) | payer OTHER, SELFPAY | PROVIDERS: PCP Nurse Practitioner Family; Visit Provider Nurse Practitioner Family | DX: B35.6 Tinea cruris (principal); Z87.438 Personal history of other diseases of male genital organs | CPT/HCPCS: 96127 ==

== ENCOUNTER 2025-01-12 14:14 | Outpatient (AMB) | payer OTHER, SELFPAY ==
--- NOTE | 2025-01-12 14:19 | MHC.OFFWIV ---
Intake Vital Signs 01/12/25 14:20 Height 5 ft 11 in Weight 273 lb 6 oz BMI 38.1 BP 134/80 Blood Pressure Location Rt brachial Position Sitting Pulse 74 Pulse Source Pulse Oximeter Temp 97.9 F Temp Source Oral Pulse Oximetry (%) 97 Oxygen Delivery Method Room Air Intake Visit Reasons: EP Contact Dermatitis? 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 Pt has h/o Tinea rash, he used Clotrimazole cream with good relief. Today asking for Fluconazole oral because it works faster and well. 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 Scaly rash in the groin, and inner thighs. The rash is raised, with well-defined borders, Erythematous. Neuro General: patient oriented x3, gait normal and moves all extremities Psych Speech and movement: Normal speech and movement present Assessment & Plan Assessment & Plan (1) Tinea: Code(s): B35.9 - Dermatophytosis, unspecified Plan: ordered Fluconazole once weekly for 4 weeks. Ordered Clotrimazole cream BID. Medications: New fluconazole TAKE ONE(1) TABLET ONCE A WEEK FOR FOUR(4) WEEKS 150 mg PO QWEEK 4 tabs 0RF 4 weeks B35.9 - Dermatophytosis, unspecified clotrimazole 1% 1 appl topical BID 45 grams 0RF B35.9 - Dermatophytosis, unspecified Coding Level of Care Code Est Pt Level 4 (42416) Diagnoses Tinea B35.9 Time Spent (min) 20
[2025-01-12 14:20] VITALS: BP 134/80; PULSE 74; TEMP 36.6; O2SAT 97; BMI 38.1
--- OUTSIDE RECORDS SUMMARY | 2025-01-12 14:46 | XMS_ITS | Encounter Summary ---
Author Organization [facility] Address [address] [place] [address] Phone Care Team Providers Care Stars Analytical Lead Name Role Phone Ada Edouard MD Primary Care Provider Encounter Details Date Type Department Care Team (Late st Contact Info) Description 12/02/2017 [facility]counter [facility] [address] [address] Ada Edouard MD [address] [place] [address] Social History Tobacco Use Types Packs/Day Years [...] on filedocumented in this encounter Care Teams Stars Analytical Lead Relationship Specialty Start Date End Date Ada Edouard MD [address] [place] [address] PCP - General 11/21/17 08/01/18 documented as of this encounter
== END 2025-01-12 15:11 | disposition home or self-care (01) ==
PROVIDERS: PCP Nurse Practitioner Family; Visit Provider Nurse Practitioner Family
DX: B35.9 Dermatophytosis, unspecified (principal)

== ENCOUNTER → 2025-01-12 14:14 | Outpatient (BNVA) | payer OTHER, SELFPAY | PROVIDERS: PCP Nurse Practitioner Family; Visit Provider Nurse Practitioner Family | DX: Z13.89 Encounter for screening for other disorder (principal) ==

== ENCOUNTER 2025-03-27 08:13 | Outpatient (AMB) | payer OTHER, SELFPAY ==
--- OUTSIDE RECORDS SUMMARY | 2025-03-27 08:08 | XMS_ITS | Encounter Summary ---
Author Organization [facility] Address [address] [place] [address] Phone Care Team Providers Care Ambulette Driver Name Role Phone Ada Edouard MD Primary Care Provider [phone] Encounter Details Date Type Department Care Team (Late st Contact Info) Description 12/02/2017 [facility]counter [facility] [address] [address] Ada Edouard MD [address] [place] [address] Social History Tobacco Use Types Packs/Day Years [...] on filedocumented in this encounter Care Teams Ambulette Driver Relationship Specialty Start Date End Date Ada Edouard MD [address] [place] [address] PCP - General 11/21/17 08/01/18 documented as of this encounter
--- OUTSIDE RECORDS SUMMARY | 2025-03-27 08:08 | XMS_ITS | Clinical Summary ---
Author Organization [facility] Address [address] [place] [address] Phone Care Team Providers Care Adhesive Sprayer Name Role Phone Unavailable Primary Care Provider Unavailabl e Allergies No known active allergies Medications No known medications Active Problems Problem Noted Date Diagnosed Date Attention-deficit hyperactiv ity disorder, predominantly hyperactive type 04/23/2015 Depression with anxiety 04/23/2015 Lactose intolerance 04/23/2015 Pediatric body mass index (B KY) of greater than or equal to 95th [...] 121 09/12/2017 12:00 AM EST Temperature 36.3 C (97.3 F) 09/12/2017 12:00 AM EST Respiratory Rate - - Oxygen Saturation 99% [...] 08/14/2000, Additional history exists Influenza Vaccines (#1) 2025 06/26/2017, 04/27 COVID-19 Vaccine ( season) 2025 12/16/2020, 11/25/2020 Hepatitis B Vaccines Completed 1999, [...] Men B Vaccine Aged Out No longer elig ible based on patient's age to complete this topic Insurance [facility]
--- NOTE | 2025-03-27 08:14 | AM.OFFWIN_ITS ---
Intake Vital Signs 03/27/25 08:15 Height 5 ft 11 in Weight 278 lb BMI 38.8 BP 124/82 Blood Pressure Location Lt brachial Position Sitting Respiration 16 Pulse 60 Pulse Oximetry (%) 97 Intake Visit Reasons: EP Skin breakout on abdomen Patient Tobacco Use Status: Never used Tobacco Accompanied by: Self / Same As Patient Allergies No Known Allergies Allergy (Verified 03/27/25 08:18) HPI HPI Comments History of Present Illness Details This is a 25-year-old male with no stated past medical history presenting for evaluation of redness around his umbilicus that he noticed 2 days ago. Patient states that the lesion is itchy but there has been no discharge from his umbilicus. He denies having any fevers, chills, associated pain or spreading of the redness. Patient took a single fluconazole tablet prior to coming to the walk in clinic. [facility] Medical History (Updated 03/27/25 @ 08:40 by Yola Cook PA-C) Dermatitis Tinea Surgical History No pertinent past surgical history Family History Father Substance use disorder Social History Housing: House Patient Tobacco Use Status: Never used Tobacco e-Cigarette/Vaping Use: Currently Using Second Hand Smoke Exposure: Yes service: No Current occupational status: employed Current occupation: [employer] Current occupational exposures/hazards: Yes Cognitive needs: No Hearing needs: No Vision needs: No Review of Systems Const All systems reviewed & are unremarkable except as noted in HPI and below Reports no additional complaints, Denies body aches, Denies chills, Denies fatigue and Denies fever(s) Musc Reports no additional complaints Skin/Breast Reports as per HPI, Denies bleeding lesions, Reports change in pigmentation, Reports changing lesions, Denies dry skin, Reports pruritus, Reports new lesions, Reports erythema, Denies skin pain, Denies skin swelling, Denies skin ulcer, Denies unusual bruising and Denies wounds Neuro Reports no additional complaints Psych Reports no additional complaints Endo Reports no additional complaints and Denies fatigue Linus/Lymph Reports no additional complaints Aller/Immun Reports no additional complaints Physical Exam Vital Signs: Last Vital Signs Pulse 60 03/27/25 08:15 Resp 16 03/27/25 08:15 BP 124/82 03/27/25 08:15 Pulse Ox 97 03/27/25 08:15 BMI result Body Mass Index 38.8 Const General: cooperative, healthy appearing, comfortable, no acute distress, well developed, alert, awake and Physically active; No acute distress Nutritional Appearance: overweight Orientation/consciousness: patient oriented x3 Limitations: no limitations Skin Other: there is approximately 4cm of scaly erythema surrounding the umbilicus that is not tender or warm to touch, no discharge noted from the umbilicus General skin exam: erythema Trauma: no lacerations or abrasions Wounds: no wounds Neuro General: patient oriented x3 Psych Appearance: grossly normal Mental Status: mental status grossly normal Insight: Good insight present (Psych) Judgement: Good judgement present (Psych) Assessment & Plan Assessment & Plan (1) Dermatitis: Comment: There is no evidence of a secondary cellulitis; lesion is likely consistent with a recurrent tinea infection. Patient will be discharged home with topical clotrimazole to be used twice daily for the next 2 weeks. Code(s): L30.9 - Dermatitis, unspecified Plan: Clotrimazole b.i.d. as prescribed. Patient will follow up for any worsening symptoms. Medications: New clotrimazole 1% 1 appl topical BID 30 grams 0RF 2 weeks Coding Level of Care Code Est Pt Level 3 (26913) Diagnoses Dermatitis L30.9
[2025-03-27 08:15] VITALS: BP 124/82; PULSE 60; RESP 16; O2SAT 97; BMI 38.8
== END 2025-03-27 08:46 | disposition home or self-care (01) ==
PROVIDERS: PCP Nurse Practitioner Family; Visit Provider Physician Assistant
DX: L30.9 Dermatitis, unspecified (principal)

== ENCOUNTER 2025-06-26 06:46 | Outpatient (REF) | payer OTHER, SELFPAY ==
--- OUTSIDE RECORDS SUMMARY | 2025-06-26 06:49 | XMS_ITS | Clinical Summary ---
Author Organization [facility] Address [address] [place] [address] Phone Care Team Providers Care Power Transformer Repair Supervisor Name Role Phone Unavailable Primary Care Provider Unavailabl e Allergies No known active allergies Medications No known medications Active Problems Problem Noted Date Diagnosed Date Attention-deficit hyperactiv ity disorder, predominantly hyperactive type 04/23/2015 Depression with anxiety 04/23/2015 Lactose intolerance 04/23/2015 Pediatric body mass index (B NC) of greater than or equal to 95th [...] patient's age to complete this topic Insurance [facility]
--- OUTSIDE RECORDS SUMMARY | 2025-06-26 06:49 | XMS_ITS | Encounter Summary ---
Author Organization [facility] Address [address] [place] [address] Phone Care Team Providers Care Project Archivist Name Role Phone Ada Edouard MD Primary Care Provider [phone] Encounter Details Date Type Department Care Team (Late st Contact Info) Description 12/02/2017 [facility]counter [facility] [address] [address] Ada Edouard MD [address] [place] [address] Social History Tobacco Use Types Packs/Day Years [...] on filedocumented in this encounter Care Teams Project Archivist Relationship Specialty Start Date End Date Ada Edouard MD [address] [place] [address] PCP - General 11/21/17 08/01/18 documented as of this encounter
[2025-06-26 10:11] LABS: MANUAL DIFF FLAG NO
[2025-06-26 10:19] LABS: Hematocrit 51.3 % (42.0-52.0); Hemoglobin 16.8 g/dl (14.0-18.0); Imm Gran Abs Auto 0.02 X10*3/uL (0.00-0.03); Imm Gran Pct Auto 0.3 % (0.0-0.4); Lymphocytes Absolute Auto 1.4 X10*3/uL (1.2-4.9); Mean Corpuscular HGB Conc 32.7 g/dl (31.0-36.0); Mean Corpuscular Hemoglobin 29.0 pg (27.0-33.0); Mean Corpuscular Volume 88.6 fL (80.0-98.0); NRBC Abs Auto 0.000 X10*3/uL (0.0-0.012); NRBC Pct Auto 0.0 /100WBC (0.0-0.2); Platelet Count 179 X10*3/uL (160-400); Red Blood Count 5.79 X10*6/uL (4.60-5.80); White Blood Count 7.4 X10*3/uL (4.8-10.8)
[2025-06-26 10:35] LABS: Alanine Aminotransferase 30 U/L (0-40); Albumin Level 4.6 g/dL (3.5-5.0); Alkaline Phosphatase 54 U/L (39-117); Anion Gap 13 (12-20); Aspartate Amino Transferase 28 U/L (5-37); Blood Urea Nitrogen 14 mg/dL (9-16); Calcium 9.5 mg/dL (8.4-10.2); Carbon Dioxide 24 mmol/L (22-29); Chloride 108 mmol/L (96-108); Cholesterol 176 mg/dL (<200); Estimated Glomerular Filt Rate > 60; HDL Cholesterol 42 mg/dL (>40); Potassium 3.9 mmol/L (3.3-5.1); Sodium 141 mmol/L (135-145); Total Protein 7.6 g/dL (6.5-8.0); Triglycerides 119 mg/dL (<150)
[2025-06-26 10:53] LABS: Appearance Urine Cloudy; Glucose Urine UA Negative (Negative); PH 7.5 (5.0-9.0); Specific Gravity - Urine 1.020 (1.005-1.025)
== END 2025-06-26 06:47 | disposition home or self-care (01) ==
LOC: HO.HMGCLDS 06:46
PROVIDERS: PCP Nurse Practitioner Family; Visit Provider Nurse Practitioner Family
DX: Z00.00 Encounter for general adult medical examination without abnormal findings (principal); Z13.6 Encounter for screening for cardiovascular disorders; Z13.29 Encounter for screening for other suspected endocrine disorder
CPT/HCPCS: 36415; 80053; 80061; 81003; 84443; 85025

== ENCOUNTER 2025-06-30 12:40 | Outpatient (AMB) | payer OTHER, SELFPAY ==
[2025-06-30 12:44] VITALS: BP 120/72; PULSE 72; O2SAT 97; BMI 38.9
--- NOTE | 2025-06-30 12:44 | A.OFFPC_ITS ---
Vital Signs 06/30/25 12:44 Height 5 ft 11 in Weight 279 lb BMI 38.9 BP 120/72 Pulse 72 Pulse Source Pulse Oximeter Pulse Oximetry (%) 97 Oxygen Delivery Method Room Air Intake Visit Reasons: Annual PE Early Intervention Specialist Required: No Accompanied by: Self / Same As Patient Allergies No Known Allergies Allergy (Verified 06/30/25 13:10) Medication List - Last Reconciled 06/30/25 by NEVA Nagy- clotrimazole 1% 1 appl topical BID 2 weeks Tobacco use date assessed: 06/30/25 Dental Screening Dental Screen Date: 06/30/25 Did you have a dental visit in the last 12 months?: Yes Did you have a dental problem in the last 6 months where you did not have access to dental care?: No Was dental information given to patient?: Patient has dentist HPI Annual PE HPI Details History of Present Illness The patient is a 25 year old male presenting with a physical exam. He reports doing well overall and denies chest pain, shortness of breath, abdominal pain, constipation, or diarrhea. He also denies suicidal or homicidal ideation. Health Maintenance - The patient was advised on the importa nce of diet, portion sizes, and other weight loss strategies to address his obesity. Social History - Weight Management: The patient is obes e and was counseled on weight loss strategies, including watching diet and portion sizes. Review of Systems - Constitutional: Reports doing well ove rall. - Cardiovascular: Denies chest pain. - Respiratory: Denies shortness of breat h. - Gastrointestinal: Denies abdominal janis n, constipation, and diarrhea. - Psychiatric: Denies suicidal ideation and homicidal ideation. Physical Exam General: Cooperative, healthy appearing, comfortable, no acute distress and well developed, obese Orientation: Patient oriented x3 Limitations: No limitations Head: Normal to inspection Ears: Hearing grossly normal bilaterally Nose: Normal external nose present Face and sinus: Normal facial exam Eyes: Appearance normal, both eyes and all related structures Neck: Normal visual inspection and Yes full ROM Respiratory: Normal respiratory effort and able to speak in complete sentences. Clear to auscultation bilaterally Cardiovascular: Regular rate and rhythm. Normal S1 and S2 GI: Normal to inspection. Soft to palpation and nontender : testicles without masses/lesions and no hernias appreciated Skin: No rashes or lesions noted Neuro: Patient oriented x3 Extremities: Normal to inspection Results - Labs: Within normal limits. Plan 1. Obesity The patient was counseled on the importance of diet and portion control for weight management. He was provided with specific weight loss strategies. 2. Preventative Care The patient presented for a routine physical exam. Lab results were reviewed and noted to be within normal limits. Discussion Notes I saw the patient for a physical exam. He is doing well overall, but is obese. I discussed the importance of managing his diet and portion sizes and provided some specific strategies for weight loss. His exam was benign and his labs were within normal limits. Patient Instructions - It is important to watch your diet and the size of your food portions. - Do not stack food items. PFSH Medical History Dermatitis Tinea Surgical History No pertinent past surgical history Family History Father Substance use disorder Social History Housing: House Patient Tobacco Use Status: Never used Tobacco e-Cigarette/Vaping Use: Currently Using Second Hand Smoke Exposure: Yes service: No Current occupational status: employed Current occupation: [email or web address] Current occupational exposures/hazards: Yes Cognitive needs: No Hearing needs: No Vision needs: No Questionnaire PHQ-9 Over the last 2 weeks, how often have you been bothered by any of the following problems? 1. Little interest or pleasure in doing things: not at all 2. Feeling down, depressed, or hopeless: several days 3. Trouble falling or staying asleep, or sleeping too much: not at all 4. Feeling tired or having little energy: several days 5. Poor appetite or overeating: several days 6. Feeling bad about yourself - or that you are a failure or have let yourself or your family down: several days 7. Trouble concentrating on things, such as reading the newspaper or watching television: not at all 8. Moving or speaking so slowly that other people could have noticed. Or the opposite - being so fidgety or restless that you have been moving around a lot more than usual: not at all 9. Thoughts that you would be better off or of hurting yourself in some way: not at all Total score: 4 Depression Screening Interpretation: Negative Depression Screening Done: Yes 06448 - PHQ-9 Billing: Yes Source: Developed by Drs. Sami Simon, Yoav Lu and colleagues, with an educational shirley from [employer]. Thrive Questionnaire Date Thrive assessed: 08/04/24 I am a: Patient What is your living situation today?: I have a steady place to live Within the past 12 months, did the food you bought not last and you didn't have the money to get more?: Never true Within the past 12 months, did you worry whether your food would run out before you got money to buy more?: Never true Do you have trouble paying for medicines?: No Do you have trouble getting transportation to medical appointments?: No Do you have trouble paying your heating and electricity bill?: No Do you have trouble taking care of your child, family member or friend?: No Do you have trouble with day-to-day activities such as bathing, preparing meals, shopping, managing finances, etc.?: No Are you currently unemployed and looking for a job?: No Are you interested in more education?: No Please select the resources that you would like help with: None Currently or been in a relationship where the following occur: I choose not to answer THRIVE Score: 0 GISELA-7 AMB Questionnaire GISELA-7 Date GISELA - 7 assessed: 06/30/25 Feeling nervous, anxious, or on edge: 1 = Several days Not being able to stop or control worryin = Several days Worrying too much about different things: 1 = Several days Trouble relaxin = Not at all Being so restless that it is hard to sit still: 2 = More than half the days Becoming easily annoyed or irritable: 1 = Several days Feeling afraid as if something awful might happen: 1 = Several days Total GISELA-7 score (0-4 normal; 5-9 mild; 10-14 moderate; 15-21 severe): 7 Source: Developed by Drs. Sami Simon, Harmony Puga, Yoav Watkins and colleagues, with an educational shirley from [employer]. GISELA-7 Assessment Billing GISELA-7 Assessment Tool: GISELA-7 Assessment 25044 Physical exam (Primary Care) Vital Signs: Last Vital Signs Pulse 72 06/30/25 12:44 BP 120/72 06/30/25 12:44 Pulse Ox 97 06/30/25 12:44 Oxygen Delivery Method Room Air 06/30/25 12:44 BMI result Body Mass Index 38.9 Tobacco/Smoking Status: Tobacco use Status Tobacco use date assessed 06/30/25 06/30/25 12:51 Patient Tobacco Use Status Never used Tobacco 06/30/25 12:51 e-Cigarette/Vaping Use Currently Using 06/30/25 12:51 PHQ-9: PHQ-9 Score PHQ-9: Total score 4 06/30/25 13:13 Depression Screening Interpretation: Negative Thrive Assessment: Date of Thrive Assessment Date Thrive assessed 08/04/24 06/30/25 12:51 Currently or been in a relationship where the following occur: I choose not to answer Coding Level of Care Code Est Pt Prev Care 18-39y(33690) Diagnoses Physical exam Z00.00 Additional Codes GISELA-7 Assessment Billing - GISELA-7 Assessment Tool: GISELA-7 Assessment 39294 ([id number]) PHQ-9 - 41870 - PHQ-9 Billing: Yes ([id number]) Assessment & Plan Assessment & Plan (1) Physical exam: Code(s): Z00.00 - Encounter for general adult medical examination without abnormal findings Category: Medical Plan . Orders: Orders Influenza [id number] Immunization Today Z23 - Encounter for immunization Medications: New Fluarix (PF) (flu vac ts (6mos up)-PF) 0.5 mL IM ONCE 0.5 mL 0RF NS Z23 - Encounter for immunization
--- OUTSIDE RECORDS SUMMARY | 2025-06-30 16:26 | XMS_ITS | Encounter Summary ---
Author Organization [facility] Address [address] [place] [address] Phone Care Team Providers Care Product Management Consultant Name Role Phone Ada Edouard MD Primary Care Provider [phone] Encounter Details Date Type Department Care Team (Late st Contact Info) Description 12/02/2017 [facility]counter [facility] [address] [address] Ada Edouard MD [address] [place] [address] Social History Tobacco Use Types Packs/Day Years [...] on filedocumented in this encounter Care Teams Product Management Consultant Relationship Specialty Start Date End Date Ada Edouard MD [address] [place] [address] PCP - General 11/21/17 08/01/18 documented as of this encounter
--- OUTSIDE RECORDS SUMMARY | 2025-06-30 16:26 | XMS_ITS | Clinical Summary ---
Author Organization [facility] Address [address] [place] [address] Phone Care Team Providers Care Gun Profiler Name Role Phone Unavailable Primary Care Provider Unavailabl e Allergies No known active allergies Medications No known medications Active Problems Problem Noted Date Diagnosed Date Attention-deficit hyperactiv ity disorder, predominantly hyperactive type 04/23/2015 Depression with anxiety 04/23/2015 Lactose intolerance 04/23/2015 Pediatric body mass index (B NJ) of greater than or equal to 95th [...] patient's age to complete this topic Insurance [facility]
== END 2025-06-30 13:21 | disposition home or self-care (01) ==
LOC: HO.HMCC 12:41
PROVIDERS: PCP Nurse Practitioner Family; Visit Provider Nurse Practitioner Family
DX: Z23 Encounter for immunization (principal); Z00.00 Encounter for general adult medical examination without abnormal findings

== ENCOUNTER → 2025-06-30 12:40 | Outpatient (BNVA) | payer OTHER, SELFPAY | PROVIDERS: PCP Nurse Practitioner Family; Visit Provider Nurse Practitioner Family | DX: Z00.00 Encounter for general adult medical examination without abnormal findings (principal); E66.9 Obesity, unspecified; Z68.38 Body mass index [BMI] 38.0-38.9, adult | CPT/HCPCS: 90471; 90656; 96127 ==

== ENCOUNTER 2025-07-13 08:42 | Outpatient (AMB) | payer OTHER, SELFPAY ==
--- OUTSIDE RECORDS SUMMARY | 2025-07-13 08:45 | XMS_ITS | Encounter Summary ---
Author Organization [facility] Address [address] [place] [address] Phone Care Team Providers Care Breakdown Person Name Role Phone Ada Edouard MD Primary Care Provider [phone] Encounter Details Date Type Department Care Team (Late st Contact Info) Description 12/02/2017 [facility]counter [facility] [address] [address] Ada Edouard MD [address] [place] [address] Social History Tobacco Use Types Packs/Day Years [...] on filedocumented in this encounter Care Teams Breakdown Person Relationship Specialty Start Date End Date Ada Edouard MD [address] [place] [address] PCP - General 11/21/17 08/01/18 documented as of this encounter
--- OUTSIDE RECORDS SUMMARY | 2025-07-13 08:46 | XMS_ITS | Clinical Summary ---
Author Organization [facility] Address [address] [place] [address] Phone Care Team Providers Care Inspector Sheet Metal Parts Name Role Phone Unavailable Primary Care Provider Unavailabl e Allergies No known active allergies Medications No known medications Active Problems Problem Noted Date Diagnosed Date Attention-deficit hyperactiv ity disorder, predominantly hyperactive type 04/23/2015 Depression with anxiety 04/23/2015 Lactose intolerance 04/23/2015 Pediatric body mass index (B AL) of greater than or equal to 95th [...] patient's age to complete this topic Insurance [facility]
[2025-07-13 09:12] VITALS: BP 124/80; PULSE 89; O2SAT 97; BMI 39.3
--- NOTE | 2025-07-13 09:12 | MHC.OFFWIV ---
Intake Vital Signs 07/13/25 09:12 Height 5 ft 11 in Weight 282 lb BMI 39.3 BP 124/80 Blood Pressure Location Rt brachial Position Sitting Pulse 89 Pulse Source Pulse Oximeter Pulse Oximetry (%) 97 Oxygen Delivery Method Room Air Intake Visit Reasons: EP Skin irritation in between buttchecks; itching Intake Note: Patient presents c/o irritation between buttcheeks x1 week. Patient Tobacco Use Status: Never used Tobacco Allergies Colophonium Allergy (Unknown, Uncoded 07/13/25 09:16) Unknown [id number] Allergy (Unknown, Uncoded 07/13/25 09:16) Unknown HPI HPI Comments History of Present Illness Details This is a 25-year-old male with no stated past medical history presenting for evaluation of redness and itching in his right anterior thigh and gluteal cleft that has been evolving over the past 6 days. Patient has been using [id number] hydrocortisone cream without relief of his symptoms. Patient states that the lesions are itchy in nature and I think they make me sweat . [facility] Medical History (Updated 07/13/25 @ 09:52 by Yola Cook PA-C) Tinea cruris Dermatitis Tinea Surgical History No pertinent past surgical history Family History Father Substance use disorder Social History Housing: House Patient Tobacco Use Status: Never used Tobacco e-Cigarette/Vaping Use: Currently Using Second Hand Smoke Exposure: Yes service: No Current occupational status: employed Current occupation: [employer] Current occupational exposures/hazards: Yes Cognitive needs: No Hearing needs: No Vision needs: No Review of Systems Const All systems reviewed & are unremarkable except as noted in HPI and below Reports as per HPI, Reports no additional complaints, Denies body aches, Denies chills and Denies fever(s) GI Reports as per HPI, Denies diarrhea, Denies loose stools, Denies nausea and Denies vomiting Reports no additional complaints, Denies genital pain and Denies testicular pain Musc Reports no additional complaints Skin/Breast Reports system reviewed and no additional complaints, except as documented, Reports pruritus, Reports lesions, Reports new lesions and Reports erythema Neuro Reports no additional complaints Psych Reports no additional complaints Endo Reports no additional complaints Linus/Lymph Reports no additional complaints Aller/Immun Reports no additional complaints Physical Exam Vital Signs: Last Vital Signs Pulse 89 07/13/25 09:12 BP 124/80 07/13/25 09:12 Pulse Ox 97 07/13/25 09:12 Oxygen Delivery Method Room Air 07/13/25 09:12 BMI result Body Mass Index 39.3 Const General: cooperative, healthy appearing, comfortable, no acute distress, well developed, alert, awake and Physically active; No ill appearing Nutritional Appearance: overweight Orientation/consciousness: patient oriented x3 Limitations: no limitations Male General Exam: Yes normal external exam, No erythema and No inguinal lymphadenopathy Penis: normal penis Scrotum: scrotum normal Testes: Testes normal Skin Other: There are patches of erythema on the medial buttocks bilaterally adjacent to the gluteal cleft with bright erythematous borders; lesions are non.tender to direct examinaton and there is no scaling, papules, or vescicles. There is a smiliar lesion on the right medial proximal thigh adjacent to the inguinal region; no erythema noted on the scrotum or penis. Neuro General: patient oriented x3 Psych Appearance: grossly normal Mental Status: mental status grossly normal Insight: Good insight present (Psych) Judgement: Good judgement present (Psych) Assessment & Plan Assessment & Plan (1) Tinea cruris: Comment: Patient's examination is consistent with tinea cruris and he will be discharged home with a topical antifungal to use twice daily for the next 2 weeks. Code(s): B35.6 - Tinea cruris Plan: Clotrimazole 1% cream twice daily x2 weeks. Medications: New clotrimazole 1% 1 appl topical BID 30 grams 1RF 2 weeks Coding Level of Care Code Est Pt Level 3 (74837) Diagnoses Tinea cruris B35.6 Time Spent (min) 20
== END 2025-07-13 09:47 | disposition home or self-care (01) ==
PROVIDERS: PCP Nurse Practitioner Family; Visit Provider Physician Assistant
DX: B35.6 Tinea cruris (principal)